=== PATIENT | female | born 1940 | race Caucasian/White ===

== ENCOUNTER 2023-10-09 21:44 | Inpatient (IN) | payer OTHER, SELFPAY ==
[2023-10-09 21:45] VITALS: BP 140/73; PULSE 54; RESP 17; TEMP 36.2; O2SAT 94; BMI 28.2
[2023-10-09 21:52] VITALS: BP 140/73; PULSE 51; RESP 21; TEMP 36.2; O2SAT 94
--- NOTE | 2023-10-09 22:08 | RAD_ITS ---
STUDY: X-RAY CHEST REASON FOR EXAM: Female, 83 years old. cough TECHNIQUE: Single AP portable view of the chest. COMPARISON: 06/18/2017 FINDINGS: The lungs are clear and expanded. Small left pleural effusion. There is moderate cardiac enlargement. Normal mediastinum and rima. There is prominence of the pulmonary hilar arteries and peripheral pulmonary arteries, consistent with congestive heart failure (CHF). Normal visualized aortic arch and descending thoracic aorta. Normal visualized thoracic spine. Normal visualized ribs, clavicles, and shoulders. There is no demonstrated abnormality of the visualized soft tissue structures of the upper abdomen. RAD/Chest 1 View (Portable) IMPRESSION: Mild congestive heart failure with a small left pleural effusion. Electronically Signed: Kirby Hylton MD at 22:54 EDT ,
[2023-10-09 22:21] LABS: Basophil# 0.03 X10^3/uL; Basophil% 0.4 % (0-1); Eosinophil# 0.07 X10^3/uL; Eosinophils% 0.9 % (0-5); Hematocrit 33.9 % (37-47); Hemoglobin 10.8 g/dL (12.0-15.0); Lymphocyte % 14.2 % (19-41); Mean Corp Hgb Conc 31.9 g/dL (32-36); Mean Corpuscular Hgb 29.3 pg (27.0-32.0); Mean Corpuscular Volume 91.9 fL (81-99); Mean Platelet Vol. 11.1 fl (6.2-12.0); Monocyte% 6.5 % (0-10); NRBC Flagged by Analyzer 0 % (0-5); Neutrophil # 6.03 X10^3/uL (2.7-7.7); Neutrophil % 77.7 % (47-70); Platelet Count 172 K/mm3 (150-450); RBC Distribution Width CV 14.9 % (11.6-14.6); RBC Distribution Width SD 50.4 fl (35.1-43.9); Red Blood Count 3.69 M/mm3 (4.2-5.4); White Blood Count 7.8 K/mm3 (4.4-11.0)
[2023-10-09 22:30] LABS: International Normalized Ratio 2.3; Prothrombin Time (Protime)PT. 24.8 SECONDS (11.7-14.9)
[2023-10-09 22:31] LABS: Partial Thromboplast Time 38.8 Seconds (24.1-36.2)
[2023-10-09] MEDS: Ondansetron 4 MG/2 ML Vial IV (22:33)
[2023-10-09 22:40] LABS: AST(SGOT) 14 U/L (15-37); Alanine Aminotransfer ALT/SGPT 11 U/L (13-56); Albumin, Serum 3.1 g/dL (3.2-5.0); Alkaline Phosphatase 63 U/L (45-117); Anion Gap 8 (5-15); BUN 30 mg/dL (7-18); BUN/Creat Ratio 25.6 RATIO (10-20); Bilirubin, Direct 0.59 mg/dL (0.00-0.30); Calcium,Total 8.8 mg/dL (8.5-10.1); Chloride 105 mmol/L (98-107); Creatinine, Serum 1.17 mg/dL (0.55-1.02); EST Glomerular Filtration Rate 47 mL/min (>60); Est Glom Filt Rate - Afr Amer 57 mL/min (>60); Estimated Creatinine Clearance 36.05 ml/min; Globulin 3.8 g/dL (2.2-4.2); Glucose 190 mg/dL (74-106); Magnesium 1.8 mg/dL (1.6-2.6); Potassium 3.4 mmol/L (3.5-5.1); Protein, Total 6.9 g/dL (6.4-8.2); Sodium Level 139 mmol/L (136-145)
[2023-10-09 22:43] VITALS: O2SAT 75; O2SAT 92
--- NOTE | 2023-10-09 22:46 | CT_ITS ---
STUDY: CT CHEST, ABDOMEN T PELVIS WITH CONTRAST REASON FOR EXAM: Female, 83 years old. abd pain RADIATION DOSAGE (If Supplied By Facility): CTDIvol = ( 22.24 ) mGy, DLP = ( 1535.21 ) mGycm TECHNIQUE: Transaxial imaging was performed following intravenous administration of IV 100mL Isovue-370. Individualized dose optimization techniques were used for this CT. COMPARISON: Chest x-ray earlier today FINDINGS: CHEST Enlargement of the left lobe of the thyroid gland extending superiorly and inferiorly. 1.5 cm noncalcified nodule in the apex of the right lung on image 15. Another 5 mm noncalcified nodule in the right upper lobe lungs on image 37. 1.5 cm ill-defined noncalcified nodule in the periphery of the right lower lobe lungs on image 83. Moderate bilateral pleural effusions with bibasilar atelectasis. There is moderate cardiac enlargement. Normal mediastinum. Normal hilar regions. Normal unenhanced pulmonary arteries. Normal aorta arch and descending thoracic aorta. Mild dextro scoliosis thoracic spine with degenerative disc disease. There is no demonstrated abnormality of the visualized upper abdomen. ABDOMEN The visualized lung bases are unremarkable. The visualized portions of the heart are within normal limits. Normal liver. There is non-visualization of the gallbladder, which may be secondary to either contraction or a prior cholecystectomy. Normal spleen. Normal pancreas. Normal bilateral adrenal glands. Normal right kidney. Normal left kidney. Normal visualized stomach. Normal small intestine. There are multiple colonic diverticula consistent with diverticulosis. There is non-visualization of the appendix. There is diffuse atherosclerotic calcification of the abdominal aorta, without a demonstrated aneurysm. Possible caval and iliac vein thrombosis with multiple collaterals in the perineum. Normal retroperitoneum. Normal abdominal wall. Normal osseous structures. PELVIS Normal urinary bladder. Normal visualized small intestine. Normal visualized colon. There is no pelvic fluid. There is no pelvic lymphadenopathy or mass lesion. Normal visualized pelvic arteries. Normal abdominal wall. Normal osseous structures. CT/CT Chest, Abd, Pel w/Contrast IMPRESSION: 1. Multiple ill-defined noncalcified nodules in the right lung. 2. Markedly enlargement of the left lobe of the thyroid gland worrisome for a dominant nodule. 3. Moderate bilateral pleural effusions with bibasilar atelectasis. 4. Cardiomegaly. 5. 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 Electronically Signed: Kirby Hylton MD at 0:01 EDT ,
[2023-10-09 22:47] LABS: BNP,B-Type NATRIURETIC PEPTIDE 1070.5 pg/mL (0-100)
[2023-10-09 22:52] VITALS: BP 118/54; PULSE 50; RESP 15; TEMP 36.4; O2SAT 95
[2023-10-09 23:00] VITALS: BP 122/60; PULSE 64; RESP 19; TEMP 36.4; O2SAT 97
[2023-10-09 23:51] LABS: Mucous, Urine 0 SEEN /hpf (<or=2+)
[2023-10-10] VITALS (11 sets, daily range): BP systolic 96–134; BP diastolic 45–83; PULSE 48–62; RESP 16–18; TEMP 36.1–36.9; O2SAT 85–97; BMI 27.8
[2023-10-10 00:15] LABS: Color, Urine Yellow (Yellow); Glucose, Dipstick NEGATIVE (Normal); Ketone-Dipstick Negative (Negative); Protein-Dipstick 30 mg/dl (Negative); Specific Gravity, Urine 1.015 (1.002-1.030); Urine Bilirubin Dipstick Negative (Negative); Urine Clarity Clear (Clear); Urine Urobilinogen 4 mg/dl (Normal)
[2023-10-10 00:16] LABS: Bacteria 3+ /hpf (None Seen); Leukocyte Esterase-Dipstick Negative /ul (Negative); Nitrite-Dipstick Negative (Negative); Occult Blood-Urine 10 /ul (Negative); Red Blood Cells-Urine 5-10 SEEN /hpf (0-5); Squamous Epithelial Cells - UA 5-10 SEEN /hpf (5-10); White Blood Cells 0-5 SEEN /hpf (0-5)
--- NOTE | 2023-10-10 00:57 | EX.ED.DYSGE1 ---
HPI History of Present Illness Chief Complaint: Nausea/Vomiting Informant: patient and family Narrative Narrative: Patient is 83-year-old female with past medical history of hypertension hyperlipidemia and chronic atrial fibrillation currently on Coumadin. Family states the patient is overall feeble but that in the last day or so has had increased cough and increased leg swelling and today had bouts of nausea and vomiting. They were concerned they were missing some type of infectious process or potential intestinal disorder and therefore brought her in for evaluation. Patient denies any known sick contacts and states she has been taking her medications as directed and denies any history or need for supplemental oxygen [facility] Medical History Atrial fibrillation Hypertension Stroke/cerebrovascular accident Home Medications carvedilol 6.25 mg tablet (Coreg) 6.25 mg PO BID 06/18/17 [History Last Taken Unknown] hydrochlorothiazide 50 mg tablet 25 mg PO DAILY 06/18/17 [History Last Taken Unknown] atorvastatin 40 mg tablet 40 mg PO QHS #30 tabs 06/20/17 [Rx Last Taken Unknown] warfarin 2 mg tablet 2 mg PO .COMPLEX 10/09/23 [History Last Taken Unknown] warfarin 2 mg tablet 4 mg PO .COMPLEX 10/09/23 [History Last Taken Unknown] hydrochlorothiazide 25 mg tablet 25 mg PO BID 10 days #20 tabs 10/10/23 [Rx Last Taken Unknown] ondansetron 4 mg disintegrating tablet 4 mg PO TID PRN nausea and vomiting #21 tabs 10/10/23 [Rx Last Taken Unknown] Allergy/AdvReac Type Severity Reaction Status Date / Time No Known Allergies Allergy Verified 06/18/17 21:08 Social History Smoking Status: Never smoker ROS ROS ED Constitutional Constitutional ED: Denies chills or fever(s) ENT ENT ED: Denies sore throat Cardiovascular Cardiovascular: Reports palpitations; Denies chest pain Respiratory/Chest Respiratory/Chest: Reports cough and dyspnea Gastrointestinal Gastrointestinal: Reports nausea and vomiting; Denies abdominal pain or diarrhea Genitourinary Genitourinary ED: Denies dysuria Musculoskeletal Musculoskeletal: Denies myalgias Integumentary Denies rash Neurologic Neurologic: Denies headache(s) Hematologic/Lymphatic Hematologic/Lymphatic: Reports easy bleeding and easy bruising EXAM Physical Exam Const Vital Signs: 10/09/23 21:45 10/09/23 21:52 10/09/23 22:43 Temperature 97.2 F L 97.2 F L Temperature Source Temporal Temporal Pulse Rate 54 L 51 L Respiratory Rate 17 21 H Blood Pressure 140/73 H 140/73 H Blood Pressure Mean 95 95 Pulse Ox 94 94 75 Oxygen Delivery Method Room Air Room Air Room Air Oxygen Flow Rate (L/min) 10/09/23 22:43 10/09/23 22:52 10/09/23 23:00 Temperature 97.6 F L 97.6 F L Temperature Source Temporal Oral Pulse Rate 50 L 64 Respiratory Rate 15 19 H Blood Pressure 118/54 L 122/60 H Blood Pressure Mean 75 80 Pulse Ox 92 95 97 Oxygen Delivery Method Nasal Cannula Nasal Cannula Nasal Cannula Oxygen Flow Rate (L/min) 4 4 4 10/10/23 00:00 10/10/23 01:09 10/10/23 02:14 Temperature 97.6 F L 97.6 F L 97.8 F Temperature Source Oral Pulse Rate 50 L 51 L 50 L Respiratory Rate 17 17 16 Blood Pressure 110/47 L 116/49 L 134/63 H Blood Pressure Mean 68 71 86 Pulse Ox 93 85 96 Oxygen Delivery Method Nasal Cannula Oxygen Flow Rate (L/min) 3 10/10/23 02:00 10/10/23 03:00 Temperature 98 F 98 F Temperature Source Oral Oral Pulse Rate 61 51 L Respiratory Rate 16 16 Blood Pressure 134/83 H 105/65 Blood Pressure Mean 100 78 Pulse Ox 93 95 Oxygen Delivery Method Nasal Cannula Nasal Cannula Oxygen Flow Rate (L/min) 3 3 Positive well nourished and well developed General Appearance ED: well developed and pallor HEENT Reports dry mucous membranes HEENT Narrative: No tongue or lip swelling no oral lesions no airway edema or compromise Mouth ED: Yes dry mucous membranes Mouth: dry mucous membranes Eyes PERRL and EOMs intact bilaterally General Eye ED: Yes pale conjunctiva; Negative for scleral icterus Neck supple Neck Narrative: Trace JVD noted bilaterally Resp normal respiratory effort Resp Narrative: Breath sounds are diminished throughout with faint crackles noted in the bilateral bases but overall no nasal flaring retractions tachypnea or accessory muscle use Cardio Rate: other Other Details: Heart has an irregularly irregular rhythm with bradycardic rate consistent with history of chronic atrial fibrillation GI non-tender and non-distended GI Narrative: Abdomen is soft nontender nondistended with hyperactive bowel sounds No voluntary guarding or rigidity or pulsatile mass No fluid wave noted Auscultation: hyperactive bowel sounds Palpation: soft Extremity Extremity Narrative: +3-4 pitting edema to the bilateral lower extremities that is equal and symmetric Negative Homans' sign bilaterally Neuro oriented x3 and CN's II-XII intact bilaterally Sensorium / Orientation: alert Psych Psych Narrative: Patient has a flat affect Skin no rashes or lesions noted and No no wounds General Skin Exam: pallor MDM MDM MDM Narrative Medical decision making narrative: Patient arrived to the ER and rate controlled atrial fibrillation which is chronic for her. She was not in respiratory distress but her pulse ox was on the lower side of 90 to 92% on room air. With her report of bouts of nausea and vomiting there is concern for viral stomach infection such as [place] virus or rotavirus. There is also potential for aspiration based on the recurrent bouts of vomiting and as she also has increased leg swelling there is concern for CHF exacerbation. Patient blood work with a CT scan were obtained. Labs revealed an elevated proBNP but otherwise no clinically significant findings. Chest x-ray showed a pleural effusion but CT scan showed bilateral pleural effusions that were moderate in size. There is no obvious intestinal infection or obstructive process noted. The patient dropped her pulse ox in the low 90s on room air down to 75% and despite being adjusted and being made to move the pulse ox would not elevate above the low to mid 80s and therefore she was placed on oxygen. Therefore at this time as her proBNP is elevated she has moderate bilateral pleural effusions and is now hypoxic I do feel she would warrant IV diuresis as well as inpatient therapy secondary to the need for oxygen. This was discussed with patient and family and they do agree to this treatment plan. Patient was given IV Lasix and medicine was contacted and they do agree to accept the patient for further care at this time History & Record Review Discussion w/independent historian: Patient and Family Lab Data Attestation: I reviewed the patient's lab results. Labs: Laboratory Results - last 24 hr 10/09/23 10/09/23 22:05 23:40 WBC 7.8 RBC 3.69 L Hgb 10.8 L Hct 33.9 L MCV 91.9 MCH 29.3 MCHC 31.9 L RDW Std Deviation 50.4 H RDW Coeff of Rosa Maria 14.9 H Plt Count 172 MPV 11.1 Immature Gran % (Auto) 0.300 Neut % (Auto) 77.7 H Lymph % (Auto) 14.2 L [place] % (Auto) 6.5 Eos % (Auto) 0.9 Baso % (Auto) 0.4 Absolute Neuts (auto) 6.0 Absolute Lymphs (auto) 1.10 Nucleated RBC % 0 PT 24.8 H INR 2.3 APTT 38.8 H Sodium 139 Potassium 3.4 L Chloride 105 Carbon Dioxide 26.0 Anion Gap 8 BUN 30 H Creatinine 1.17 H Estim Creat Clear Calc 36.05 Est GFR (MDRD) Af Amer 57 L Est GFR (MDRD) Non-Af 47 L BUN/Creatinine Ratio 25.6 H Glucose 190 H Calcium 8.8 Magnesium 1.8 Total Bilirubin 1.40 H Direct Bilirubin 0.59 H AST 14 L ALT 11 L Alkaline Phosphatase 63 B-Natriuretic Peptide 1070.5 H Total Protein 6.9 Albumin 3.1 L Globulin 3.8 Urine Color Yellow Urine Clarity Clear Urine pH 5.0 Ur Specific [place] 1.015 Urine Protein 30 H Urine Glucose (UA) NEGATIVE Urine Ketones Negative Urine Occult Blood 10 H Urine Nitrite Negative Urine Bilirubin Negative Urine Urobilinogen 4 H Ur Leukocyte Esterase Negative Urine RBC 5-10 SEEN Urine WBC 0-5 SEEN Ur Squamous Epith Cells 5-10 SEEN Urine Bacteria 3+ Urine Mucus 0 SEEN Radiography Diagnostic Testing: Clinical Impression(s) from Imaging Studies Chest X-Ray 10/09/23 22:08 IMPRESSION: Mild congestive heart failure with a small left pleural effusion. Electronically Signed: Kirby Hylton MD at 22:54 EDT , Chest/Abdomen/Pelvis CT 10/09/23 22:46 IMPRESSION: 1. Multiple ill-defined noncalcified nodules in the right lung. 2. Markedly enlargement of the left lobe of the thyroid gland worrisome for a dominant nodule. 3. Moderate bilateral pleural effusions with bibasilar atelectasis. 4. Cardiomegaly. 5. 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 Electronically Signed: Kirby Hylton MD at 0:01 EDT , 1 view chest x-ray as interpreted by the emergency medicine physician reveals cardiomegaly with a small left-sided pleural effusion Discharge Plan Dx/Rx/DC Orders Clinical Impression: Congestive heart failure, Pleural effusion, Viral syndrome, Current use of predatory animal exterminator anticoagulation, HLD (hyperlipidemia), Chronic atrial fibrillation, HTN (hypertension) Disposition Disposition: Acute Care Hospital [facility] Discharge Date/Time: 10/10/23 04:28
--- NOTE | 2023-10-10 01:11 | ED.RN ---
Dr. An aware of pt low O2 while sleeping. Family requests to take pt home.
[2023-10-10] MEDS: Furosemide 40 MG/4 ML Vial IV ×3 (01:14→17:47)
--- NOTE | 2023-10-10 01:37 | ED.RN ---
Pt 85% on RA while sitting on edge of the bed before discharge. Walked pt, went from 85-80%. Discussed pt admission with pt and family. RN explained that pt needs supplemental oxygen and diuretics. Discussed pt condition with Dr. An. Juve talking with family with this RN in the room. Family re-educated on pt admission benefits. Family discussing plan of care together. Family then reusing to speak with RN about pt condition and will only speak to doctor. Dr. An is aware. Pt resting on 3L at 97%.
--- NOTE | 2023-10-10 02:01 | PCM.HP.STD ---
[facility] - General General Date of Admission: 10/10/23 Date of Service: 10/10/23 Chief Complaint: SOB, Fatigue, Nausea and Vomiting. HPI Narrative MARYAN STANFORD, is a 83 F with a past medical history of essential hypertension, hyperlipidemia, overweight; with BMI of 28.2 this admission, chronic atrial fibrillation; on Coumadin (with INR of 2.3 present on admission), history of CVA (05/2017), history of CHF and osteoarthritis who presents to [facility] ER complaining of shortness of breath, fatigue, nausea and vomiting. Ms. Stanford reports her symptoms began approximately 2 to 3 days prior to admission with a gradual onset of dyspnea on exertion that progressed to shortness of breath at rest. She also admits to nausea with bilious emesis but she denies blood in her emesis or stools. They deny any known history of thyroid nodules or lung nodules but she does admit to a chronic cough that have been worse over the winter but has since somewhat improved. She admits her symptoms are similar to her previous bouts of CHF. In the ER she was noted to have a highly elevated BNP of 1,070.5 pg/mL present on admission with chest x-ray revealing mild congestive heart failure with small pleural effusion and CT scan of the chest revealing multiple ill-defined nodules in the right lung with a marked enlargement of the left lobe of the thyroid gland worrisome for a dominant nodule along with moderate bilateral pleural effusions with bibasilar atelectasis, cardiomegaly and possible caval and iliac vein thrombosis (likely chronic with multiple varices in the peritoneum) compounded by clinical evidence of respiratory insufficiency and laboratory evidence of hypokalemia of 3.4 mmol/L present on admission and she was then admitted to the PCU for ongoing care for stay that is expected to be greater than 48 hours. [facility] Medical History Atrial fibrillation Hypertension Stroke/cerebrovascular accident Home Medications carvedilol 6.25 mg tablet (Coreg) 6.25 mg PO BID 06/18/17 [History Last Taken Unknown] hydrochlorothiazide 50 mg tablet 25 mg PO DAILY 06/18/17 [History Last Taken Unknown] atorvastatin 40 mg tablet 40 mg PO QHS #30 tabs 06/20/17 [Rx Last Taken Unknown] warfarin 2 mg tablet 2 mg PO .COMPLEX 10/09/23 [History Last Taken Unknown] warfarin 2 mg tablet 4 mg PO .COMPLEX 10/09/23 [History Last Taken Unknown] hydrochlorothiazide 25 mg tablet 25 mg PO BID 10 days #20 tabs 10/10/23 [Rx Last Taken Unknown] ondansetron 4 mg disintegrating tablet 4 mg PO TID PRN nausea and vomiting #21 tabs 10/10/23 [Rx Last Taken Unknown] Allergy/AdvReac Type Severity Reaction Status Date / Time No Known Allergies Allergy Verified 06/18/17 21:08 Social History Smoking Status: Never smoker ROS ROS Narrative Review of systems: General: Patient denies fevers or chills. HENT: Denies headache, denies stuffy nose, denies sore throat EYES: Denies changes in vision or discharge from eyes. Resp: Patient admits to shortness of breath but denies cough. Cardiac: Patient admits to dyspnea on exertion that progressed to shortness of breath at rest but she denies chest pain, palpitations or heart racing. GI: Patient admits to nausea and bilious emesis but she denies abdominal pain, denies changes in bowel. : Denies changes in urination Extremity: Patient admits to lower extremity edema. Musculoskeletal: Patient denies arthralgias or myalgias. Neuro: Patient denies associated headache, paresthesias or focal neurologic deficits. Heme: Denies any bleeding or bruising Skin: Denies rashes Psychiatric: No complaints voiced related to uncontrolled depression or anxiety. Endocrine: No polyuria, polydipsia or polyphagia. The rest of the 14 point ROS was negative except for positives in HPI. Vital Signs Vital Signs Vital Signs: 10/09/23 21:45 10/09/23 21:52 10/09/23 22:43 Temperature 97.2 F L 97.2 F L Temperature Source Temporal Temporal Pulse Rate 54 L 51 L Respiratory Rate 17 21 H Blood Pressure 140/73 H 140/73 H Blood Pressure Mean 95 95 Pulse Ox 94 94 75 Oxygen Delivery Method Room Air Room Air Room Air Oxygen Flow Rate (L/min) 10/09/23 22:43 10/09/23 22:52 10/09/23 23:00 Temperature 97.6 F L 97.6 F L Temperature Source Temporal Oral Pulse Rate 50 L 64 Respiratory Rate 15 19 H Blood Pressure 118/54 L 122/60 H Blood Pressure Mean 75 80 Pulse Ox 92 95 97 Oxygen Delivery Method Nasal Cannula Nasal Cannula Nasal Cannula Oxygen Flow Rate (L/min) 4 4 4 10/10/23 00:00 10/10/23 01:09 Temperature 97.6 F L 97.6 F L Temperature Source Oral Pulse Rate 50 L 51 L Respiratory Rate 17 17 Blood Pressure 110/47 L 116/49 L Blood Pressure Mean 68 71 Pulse Ox 93 85 Oxygen Delivery Method Nasal Cannula Oxygen Flow Rate (L/min) 3 Weight Weight: 169 lb 8.568 oz Body Mass Index (BMI) 28.2 Physical Exam Const alert, oriented x3, no apparent distress and average body habitus General Appearance: cooperative HEENT normocephalic, head/scalp atraumatic, hearing grossly normal bilaterally and moist oral mucous membranes Eyes PERRL and EOMs intact bilaterally Neck no lymphadenopathy and supple Resp Resp Narrative: Diminished breath sounds throughout with bibasilar rales. Auscultation: rales Cardio regular rate and regular rhythm GI normal to inspection, nondistended, normoactive bowel sounds, soft to palpation, non-tender and non-distended Neuro oriented x3, CN's II-XII intact bilaterally, moves all extremities and no focal motor deficits Sensorium / Orientation: awake, alert, oriented to person, oriented to place and oriented to time Speech: speech normal Psych affect normal Results Medical Records Data Attestation: I reviewed the patient's medical records Lab / Micro Data Attestation: I reviewed the patient's lab results. 10/09/23 22:05 10/09/23 22:05 Labs: Laboratory Results - last 24 hr 10/09/23 22:05: WBC 7.8, RBC 3.69 L, Hgb 10.8 L, Hct 33.9 L, MCV 91.9, MCH 29.3, MCHC 31.9 L, RDW Std Deviation 50.4 H, RDW Coeff of Rosa [place] 14.9 H, Plt Count 172, MPV 11.1, Immature Gran % (Auto) 0.300, Neut % (Auto) 77.7 H, Lymph % (Auto) 14.2 L, [place] % (Auto) 6.5, Eos % (Auto) 0.9, Baso % (Auto) 0.4, Absolute Neuts (auto) 6.0, Absolute Lymphs (auto) 1.10, Nucleated RBC % 0, PT 24.8 H, INR 2.3, APTT 38.8 H, Sodium 139, Potassium 3.4 L, Chloride 105, Carbon Dioxide 26.0, Anion Gap 8, BUN 30 H, Creatinine 1.17 H, Estim Creat Clear Calc 36.05, Est GFR (MDRD) Af Amer 57 L, Est GFR (MDRD) Non-Af 47 L, BUN/Creatinine Ratio 25.6 H, Glucose 190 H, Calcium 8.8, Magnesium 1.8, Total Bilirubin 1.40 H, Direct Bilirubin 0.59 H, AST 14 L, ALT 11 L, Alkaline Phosphatase 63, B-Natriuretic Peptide 1070.5 H, Total Protein 6.9, Albumin 3.1 L, Globulin 3.8 10/09/23 23:40: Urine Color Yellow, Urine Clarity Clear, Urine pH 5.0, Ur Specific [place] 1.015, Urine Protein 30 H, Urine Glucose (UA) NEGATIVE, Urine Ketones Negative, Urine Occult Blood 10 H, Urine Nitrite Negative, Urine Bilirubin Negative, Urine Urobilinogen 4 H, Ur Leukocyte Esterase Negative, Urine RBC 5-10 SEEN, Urine WBC 0-5 SEEN, Ur Squamous Epith Cells 5-10 SEEN, Urine Bacteria 3+, Urine Mucus 0 SEEN Micro: Microbiology 10/09/23 22:20 Mucosa - Nose SARS-CoV-2, Influenza & RSV (PCR) - Final Imaging Radiology Impression Chest X-Ray 10/09/23 22:08 IMPRESSION: Mild congestive heart failure with a small left pleural effusion. Electronically Signed: Kirby Hylton MD at 22:54 EDT , Chest/Abdomen/Pelvis CT 10/09/23 22:46 IMPRESSION: 1. Multiple ill-defined noncalcified nodules in the right lung. 2. Markedly enlargement of the left lobe of the thyroid gland worrisome for a dominant nodule. 3. Moderate bilateral pleural effusions with bibasilar atelectasis. 4. Cardiomegaly. 5. 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 Electronically Signed: Kirby Hylton MD at 0:01 EDT , Assessment & Plan Assessment/Plan (1) Congestive heart failure: QUALIFIERS: Heart failure type: unspecified Heart failure chronicity: acute on chronic Qualified Code(s): I50.9 - Heart failure, unspecified (2) Respiratory insufficiency: (3) Pleural effusion: (4) Lung nodule, multiple: (5) Thyroid nodule: (6) Hypokalemia: (7) Chronic atrial fibrillation: (8) History of stroke: PLAN: Plan 1. Acute exacerbation of chronic CHF with cardiomegaly and moderate bilateral pleural effusions evident on chest imaging this admission confirmed by elevated BNP of 1070.5 pg/mL- Admit to PCU. Continue IV Lasix plus add supplemental potassium and magnesium. Place Patel and follow strict I's and O's. Check echocardiogram to evaluate LVEF. Finally, we will consult safety fire boss on-call to see this patient on rounds in the a.m. for further recommendations without appreciated in advance. 2. Respiratory insufficiency attributable to #1 - Wean supplemental oxygen as tolerated. 3. Intractable nausea and vomiting due to suspected viral gastroenteritis complicating #1 & #2 - Give IV Zofran as needed. Otherwise, continue supportive care and monitor for improvement. 4. Multiple ill-defined nodules in the right lung with a marked enlargement of the left lobe of the thyroid gland worrisome for a dominant nodule compounding #1 - #3 - Check TSH along with thyroid ultrasound. Finally, we will consult pulmonology to see this patient on rounds in the a.m. for further recommendations without appreciated in advance. 5. Hypokalemia of 3.4 mmol/L present on admission - Give supplemental KCl and then recheck BMP in the a.m. to ensure correction. 6. Chronic atrial fibrillation; on Coumadin (with INR of 2.3 present on admission) - Stable. Continue Coumadin as previous and check INR daily to maintain therapeutic range of 2-3. 7. Essential hypertension - Resume home regimen plus give IV hydralazine as needed for systolic blood pressure greater than 160 mmHg. 8. Hyperlipidemia - Continue statin. 9. Overweight; with BMI of 28.2 this admission - Weight loss will be recommended. 10. History of CVA (05/2017) - Noted. 11. Osteoarthritis - Give Tylenol as needed. 12. DVT prophylaxis - Patient is already on therapeutic Coumadin for #6 which will be continued with daily INR to be checked. Total time: Approximately 85 minutes. Charges/Coding Visit Charges Inpatient E&M: 63852 Init Hosp L3
--- NOTE | 2023-10-10 04:21 | US_ITS ---
STUDY: THYROID ULTRASOUND REASON FOR EXAM: Female, 83 years old. Dominant thyroid nodule suspected on CT TECHNIQUE: Ultrasound evaluation of the thyroid was performed with real-time and static solano-scale imaging. COMPARISON: Comparison is made with prior CT scan of the chest dated October 09, 2023. FINDINGS: RIGHT LOBE: The right lobe of the thyroid gland measures 3.3 cm x 1.1 cm x 1.3 cm. There is a heterogeneous echotexture. Multiple subcentimeter solid hypoechoic nodules scattered throughout the right lobe. The largest measures 7 mm x 6 mm x 4 mm. This is in the upper pole. LEFT LOBE: The left lobe of the thyroid gland is enlarged and measures 6 cm x 4.5 cm x 4.5 cm. There is a heterogeneous echotexture. There is a dominant 4.9 cm x 4.9 cm x 5.2 cm heterogeneous solid nodule with internal nodular vascularity corresponding to the CT findings. Biopsy recommended. ISTHMUS: The isthmus measures 1.5 mm. The regional lymph nodes are normal. US/Thyroid IMPRESSION: Heterogeneous appearance of both lobes of the thyroid. Enlarged left lobe of the thyroid with a dominant solid mass measuring 4.9 sono by 4.9+ by 5.2 cm. Intranodular vascularity is seen. Biopsy recommended. Electronically Signed: Joaquim Nieves MD at 11:22 EDT ,
--- NOTE | 2023-10-10 04:21 | ECHOD_ITS ---
Reason For Study: CONGESTIVE HEART FAILURE Procedure This was a 2D Doppler, Color Flow transthoracic echocardiogram. Exam performed portable in patient room. Left Ventricle Normal LV size. Left ventricular systolic function is normal. The estimated ejection fraction is 55 %. No regional wall motion abnormalities noted. Right Ventricle Normal RV size. Normal systolic function. Atria The left atrium is moderately enlarged. The right atrium is moderately enlarged. Mitral Valve Bileaflet diffuse mitral valve thickening. Mild (1+) eccentric mitral valve insufficiency. Tricuspid Valve Normal tricuspid valve. Moderate (2+) tricuspid valve insufficiency. Pulmonary artery systolic pressure is 69 mmHg. Moderate pulmonary hypertension. Aortic Valve Trisinus/trileaflet aortic valve. Pulmonic Valve Normal pulmonic valve. Great Vessels Normal aortic root. The pulmonary artery is normal size. Normal inferior vena cava. Pericardium/Pleural No pericardial effusion. MMode/2D Measurements & Calculations LVIDd: 4.8 cm IVSd: 1.1 cm LVOT diam: 1.9 cm LVIDs: 3.3 cm LVPWd: 0.96 cm LVOT area: 2.7 cm2 RVDd: 4.3 cm FS: 30.3 % Ao root diam: 2.8 cm LAV(MOD-bp): 110.2 ml LVAd ap4: 18.6 cm2 LAV(MOD-bp) Indexed: 61.1 ml/m2 LVLd ap4: 6.5 cm LAV(MOD-sp2): 151.1 ml EDV(MOD-sp4): 45.4 ml LAV(MOD-sp4): 78.4 ml EDV(sp4-el): 45.2 ml LVAs ap4: 11.3 cm2 LVLs ap4: 5.7 cm ESV(MOD-sp4): 20.0 ml ESV(sp4-el): 19.0 ml EF(MOD-sp4): 55.8 % EF(sp4-el): 57.9 % LVAd ap2: 17.8 cm2 SV(MOD-sp4): 25.3 ml SV(MOD-sp2): 25.2 ml LVLd ap2: 6.5 cm EDV(MOD-sp2): 40.2 ml EDV(sp2-el): 41.6 ml LVAs ap2: 9.5 cm2 LVLs ap2: 5.1 cm ESV(MOD-sp2): 15.0 ml ESV(sp2-el): 15.0 ml EF(MOD-sp2): 62.6 % SV(sp4-el): 26.1 ml LA dimension(2D): 4.8 cm LA A4 area: 26.0 cm2 RA A4 area: 26.2 cm2 TAPSE: 1.6 cm Time Measurements MV dec time: 0.17 sec Doppler Measurements & Calculations MV E max donavon: 94.9 cm/sec Lat Peak E' Donavon: 7.2 cm/sec Med Peak E' Donavon: 5.8 cm/sec E/E' lat: 13.2 E/E' med: 16.4 Ao V2 max: 133.5 cm/sec LV V1 max: 100.8 cm/sec SV(LVOT): 68.8 ml Ao max P.1 mmHg LV V1 max P.1 mmHg Ao V2 mean: 95.7 cm/sec LV V1 mean P.5 mmHg Ao mean P.1 mmHg LV V1 mean: 75.6 cm/sec Ao V2 VTI: 32.1 cm LV V1 VTI: 25.1 cm AV (velocity ratio): 0.78 JESUSITA(I,D): 2.1 cm2 JESUSITA(V,D): 2.1 cm2 PA V2 max: 105.6 cm/sec TR max donavon: 384.6 cm/sec PA max PG (full): 1.0 mmHg TR max P.2 mmHg ECHO/Echo Complete Interpretation Summary Pulmonary artery systolic pressure is 69 mmHg. Moderate pulmonary hypertension. Normal LV size. Left ventricular systolic function is normal. The estimated ejection fraction is 55 %. Biatrial enlargement Ordering Physician: Frank Baez Referring Physician: PAIGE GALLOWAY Performed By: Verenice Perez RDCS
[2023-10-10 05:53] LABS: Absolute Lymphocyte Count 1.15 X10^3/uL (0.83-4.51); Basophil# 0.03 X10^3/uL; Basophil% 0.4 % (0-1); Eosinophil# 0.01 X10^3/uL; Eosinophils% 0.1 % (0-5); Hematocrit 34.8 % (37-47); Hemoglobin 10.8 g/dL (12.0-15.0); Lymphocyte # 1.15 X10^3/ul (0.83-4.51); Lymphocyte % 14.9 % (19-41); Mean Corpuscular Hgb 28.8 pg (27.0-32.0); Mean Corpuscular Volume 92.8 fL (81-99); Mean Platelet Vol. 11.6 fl (6.2-12.0); Monocyte# 0.56 X10^3/uL; Monocyte% 7.2 % (0-10); NRBC Flagged by Analyzer 0 % (0-5); Neutrophil # 5.96 X10^3/uL (2.7-7.7); Platelet Count 160 K/mm3 (150-450); RBC Distribution Width SD 51.4 fl (35.1-43.9); Red Blood Count 3.75 M/mm3 (4.2-5.4); White Blood Count 7.7 K/mm3 (4.4-11.0)
--- NOTE | 2023-10-10 05:55 | RAD_ITS ---
STUDY: X-RAY CHEST REASON FOR EXAM: Female, 83 years old. AE CHF TECHNIQUE: Single AP portable view of the chest. COMPARISON: Comparison is made with prior study dated October 09, 2023. FINDINGS: EKG electrodes are seen. Residual pleural parenchymal changes at the left lung base. The CHF has improved. Mild residual changes persist. There is mild cardiac enlargement. Normal mediastinum and rima. Normal visualized pulmonary arteries. There is atherosclerotic calcification of the aortic arch with tortuosity. There are diffuse degenerative changes of the visualized thoracic spine. There is degenerative osteoarthritis of the bilateral shoulders. There is no demonstrated abnormality of the visualized soft tissue structures of the upper abdomen. RAD/Chest 1 View (Portable) IMPRESSION: There has been improvement of the CHF with residual pleural parenchymal changes seen at the left lung base. Electronically Signed: Joaquim Nieves MD at 15:42 EDT ,
[2023-10-10 06:15] LABS: International Normalized Ratio 2.2; Prothrombin Time (Protime)PT. 24.2 SECONDS (11.7-14.9)
[2023-10-10 06:26] LABS: Phosphorus 3.7 mg/dL (2.5-4.9)
[2023-10-10 06:35] LABS: ALB/GLOB Ratio 0.8 RATIO (0.9-2.4); AST(SGOT) 12 U/L (15-37); Alanine Aminotransfer ALT/SGPT 10 U/L (13-56); Alkaline Phosphatase 62 U/L (45-117); Anion Gap 6 (5-15); BUN 30 mg/dL (7-18); Calcium,Total 8.6 mg/dL (8.5-10.1); Chloride 105 mmol/L (98-107); Cholesterol 85 mg/dL (200); Creatinine, Serum 1.07 mg/dL (0.55-1.02); EST Glomerular Filtration Rate 52 mL/min (>60); Est Glom Filt Rate - Afr Amer 63 mL/min (>60); Estimated Creatinine Clearance 37.73 ml/min; Globulin 3.6 g/dL (2.2-4.2); Glucose 141 mg/dL (74-106); High Density Lipoprotein 33 mg/dL; Magnesium 1.8 mg/dL (1.6-2.6); Potassium 3.2 mmol/L (3.5-5.1); Protein, Total 6.6 g/dL (6.4-8.2); Sodium Level 139 mmol/L (136-145); Thyroid Stim Hormone (TSH) 1.52 uIU/mL (0.358-3.74); Triglycerides 47 mg/dL; Very Low Density Lipoprotein 9 mg/dL (5-40)
--- NOTE | 2023-10-10 07:56 | CON.PCM.CA_ITS ---
Assessment & Plan Assessment/Plan (1) Chronic atrial fibrillation: PLAN: She presents with chronic persistent atrial fibrillation with a controlled ventricular response rate. The plan is for her to continue on the current anticoagulation maintaining an INR of 2-3 as well as remain on the beta-stephen. Echocardiogram performed demonstrated preserved ejection fraction with biatrial enlargement. * (2) HTN (hypertension): QUALIFIERS: Hypertension type: essential hypertension Qualified Code(s): I10 - Essential (primary) hypertension PLAN: Her blood pressure appears to be under good control at this time. I would not recommend any major changes. (3) Congestive heart failure: QUALIFIERS: Heart failure chronicity: acute on chronic Heart failure type: unspecified Qualified Code(s): I50.9 - Heart failure, unspecified PLAN: She appears to have heart failure with reduced ejection fraction. This is likely on the basis of hypertensive heart disease and atrial fibrillation. I would recommend we optimize her therapy with guideline directed therapy. She will continue on the beta-stephen, CAROLIN inhibitor. I suspect Entresto will be too expensive to afford and the same with an SGLT2. I will however discuss this further with her. Further recommendations will be made after the results of the echocardiogram. HPI Consult Data Date of Consult: 10/10/23 HPI Narrative HPI Narrative: MARYAN RAE, is a 83 F who presents with a past medical history of hypertension, hyperlipidemia, obesity, chronic persistent atrial fibrillation on ant icoagulation with a previous history of cerebrovascular accident. He also has a history of previous congestive heart failure and osteoarthritis. She presented to the hospital complaining of shortness of breath fatigue nausea and vomiting. This had been going on for approximately 2 to 3 days prior to admission. In the emergency room she was evaluated she was noted to be in atrial fibrillation with a controlled ventricular response rate natruretic peptide was elevated and chest x-ray revealed small pleural effusion with a CT scan demonstrating mild congestive heart failure. In addition there was a suggestion of possible cava and Ilac vein thrombosis noted on the CT scan. Cardiology was consulted to evaluate the patient due to the elevated natruretic peptide level. This morning she is free of any symptomatology. [facility] Medical History Atrial fibrillation Hypertension Stroke/cerebrovascular accident Home Medications carvedilol 6.25 mg tablet (Coreg) 6.25 mg PO BID 06/18/17 [History Last Taken Unknown] hydrochlorothiazide 50 mg tablet 25 mg PO DAILY 06/18/17 [History Last Taken Unknown] atorvastatin 40 mg tablet 40 mg PO QHS #30 tabs 06/20/17 [Rx Last Taken Unknown] warfarin 2 mg tablet 2 mg PO .COMPLEX 10/09/23 [History Last Taken Unknown] warfarin 2 mg tablet 4 mg PO .COMPLEX 10/09/23 [History Last Taken Unknown] hydrochlorothiazide 25 mg tablet 25 mg PO BID 10 days #20 tabs 10/10/23 [Rx Last Taken Unknown] ondansetron 4 mg disintegrating tablet 4 mg PO TID PRN nausea and vomiting #21 tabs 10/10/23 [Rx Last Taken Unknown] Allergy/AdvReac Type Severity Reaction Status Date / Time No Known Allergies Allergy Verified 06/18/17 21:08 Social History Smoking Status: Never smoker ROS Constitutional Constitutional: Denies fever(s) or weight loss Eyes Eyes: Reports systems reviewed and no addt'l complaints, except as documented ENT HEENT: Reports systems reviewed and no addt'l complaints, except as documented Cardiovascular Cardiovascular: Denies chest pain at rest, chest pain with activity, dyspnea at rest, dyspnea on exertion, edema, palpitations or paroxysmal nocturnal dyspnea Respiratory/Chest Respiratory/Chest: Reports shortness of breath at rest; Denies dyspnea on e xertion, productive cough or shortness of breath with exertion Gastrointestinal Gastrointestinal: Reports nausea and vomiting; Denies change in bowel habits or weight changes Genitourinary Genitourinary: Denies difficulty urinating Musculoskeletal Musculoskeletal: Denies joint stiffness or muscle weakness Integumentary Integumentary: Denies lesions Neurologic Neurologic: Denies dizziness or syncope Psychiatric Psychiatric: Denies anxiety Endocrine Endocrinology: Denies excessive sweating or fatigue Hematologic/Lymphatic Hematologic/Lymphatic: Denies anemia Allergic/Immunologic Allergic/Immunologic: Denies seasonal rhinorrhea Physical Exam Const alert, oriented x3 and no apparent distress General Appearance: cooperative HEENT hearing grossly normal bilaterally Head and Scalp: atraumatic Eyes EOMs intact bilaterally Neck General: normal visual inspection Chest inspection of chest normal and palpation of chest normal Resp normal respiratory effort Auscultation: clear to auscultation bilaterally Cardio regular rate, regular rhythm, S1 normal heart sound and S2 normal heart sound Jugular Venous Distention: JVD GI normal to inspection, nondistended, normoactive bowel sounds Extremity normal capillary refill and no pedal edema Peripheral Pulses: Yes pulses 2+ throughout and femoral pulses present Skin no rashes or lesions noted Neuro oriented x3 and CN's II-XII intact bilaterally Psych Appearance: grossly normal and appropriate Risk Stratification Risk Stratification Applicable: No Objective Data Vital Signs: Vital Signs Temp Pulse Resp BP Pulse Ox O2 Del Method O2 Flow Rate 97 F L 58 L 18 130/60 H 95 Nasal Cannula 2 10/10/23 06:30 10/10/23 06:30 10/10/23 06:30 10/10/23 06:30 10/10/23 06:30 10/10/23 06:30 10/10/23 06:30 Oxygen Flow Rate (L/min) 2 Oxygen Delivery Method Nasal Cannula Weight: 161 lb 13.109 oz Body Mass Index (BMI) 27.8 Lab / Micro Data 10/10/23 05:20 10/10/23 05:20 Labs: Laboratory Results - last 24 hr 10/09/23 22:05: WBC 7.8, RBC 3.69 L, Hgb 10.8 L, Hct 33.9 L, MCV 91.9, MCH 29.3, MCHC 31.9 L, RDW Std Deviation 50.4 H, RDW Coeff of Rosa Maria 14.9 H, Plt Count 172, MPV 11.1, Immature Gran % (Auto) 0.300, Neut % (Auto) 77.7 H, Lymph % (Auto) 14.2 L, Schuyler % (Auto) 6.5, Eos % (Auto) 0.9, Baso % (Auto) 0.4, Absolute Neuts (auto) 6.0, Absolute Lymphs (auto) 1.10, Nucleated RBC % 0, PT 24.8 H, INR 2.3, APTT 38.8 H, Sodium 139, Potassium 3.4 L, Chloride 105, Carbon Dioxide 26.0, Anion Gap 8, BUN 30 H, Creatinine 1.17 H, Estim Creat Clear Calc 36.05, Est GFR (MDRD) Af Amer 57 L, Est GFR (MDRD) Non-Af 47 L, BUN/Creatinine Ratio 25.6 H, Glucose 190 H, Calcium 8.8, Magnesium 1.8, Total Bilirubin 1.40 H, Direct Bilirubin 0.59 H, AST 14 L, ALT 11 L, Alkaline Phosphatase 63, B-Natriuretic Peptide 1070.5 H, Total Protein 6.9, Albumin 3.1 L, Globulin 3.8 10/09/23 23:40: Urine Color Yellow, Urine Clarity Clear, Urine pH 5.0, Ur Specific [place] 1.015, Urine Protein 30 H, Urine Glucose (UA) NEGATIVE, Urine Ketones Negative, Urine Occult Blood 10 H, Urine Nitrite Negative, Urine Bilirubin Negative, Urine Urobilinogen 4 H, Ur Leukocyte Esterase Negative, Urine RBC 5-10 SEEN, Urine WBC 0-5 SEEN, Ur Squamous Epith Cells 5-10 SEEN, Urine Bacteria 3+, Urine Mucus 0 SEEN 10/10/23 05:20: WBC 7.7, RBC 3.75 L, Hgb 10.8 L, Hct 34.8 L, MCV 92.8, MCH 28.8, MCHC 31.0 L, RDW Std Deviation 51.4 H, RDW Coeff of Rosa Maria 15.0 H, Plt Count 160, MPV 11.6, Immature Gran % (Auto) 0.400, Neut % (Auto) 77.0 H, Lymph % (Auto) 14.9 L, [place]uyler % (Auto) 7.2, Eos % (Auto) 0.1, Baso % (Auto) 0.4, Absolute Neuts (auto) 6.0, Absolute Lymphs (auto) 1.15, Nucleated RBC % 0, PT 24.2 H, INR 2.2, Sodium 139, Potassium 3.2 L, Chloride 105, Carbon Dioxide 28.0, Anion Gap 6, BUN 30 H, Creatinine 1.07 H, Estim Creat Clear Calc 37.73, Est GFR (MDRD) Af Amer 63, Est GFR (MDRD) Non-Af 52 L, BUN/Creatinine Ratio 28.0 H, Glucose 141 H, Calcium 8.6, Phosphorus 3.7, Magnesium 1.8, Total Bilirubin 1.20 H, AST 12 L, ALT 10 L, Alkaline Phosphatase 62, Total Protein 6.6, Albumin 3.0 L, Globulin 3.6, Albumin/Globulin Ratio 0.8 L, Triglycerides 47, Cholesterol 85, LDL Cholesterol 43, VLDL Cholesterol 9, HDL Cholesterol 33 L, TSH 1.52 Micro: Microbiology 10/09/23 22:20 Mucosa - Nose SARS-CoV-2, Influenza & RSV (PCR) - Final Cardiology Labs/Tests 10/09/23 22:05: WBC 7.8, RBC 3.69 L, Hgb 10.8 L, Hct 33.9 L, MCV 91.9, MCH 29.3, MCHC 31.9 L, Plt Count 172, MPV 11.1, Immature Gran % (Auto) 0.300, Neut % (Auto) 77.7 H, Lymph % (Auto) 14.2 L, [place] % (Auto) 6.5, Eos % (Auto) 0.9, Baso % (Auto) 0.4, Absolute Neuts (auto) 6.0, Nucleated RBC % 0, PT 24.8 H, INR 2.3, APTT 38.8 H, Sodium 139, Potassium 3.4 L, Chloride 105, Carbon Dioxide 26.0, Anion Gap 8, BUN 30 H, Creatinine 1.17 H, Est GFR (MDRD) Af Amer 57 L, Est GFR (MDRD) Non-Af 47 L, BUN/Creatinine Ratio 25.6 H, Glucose 190 H, Calcium 8.8, Magnesium 1.8, Total Bilirubin 1.40 H, Direct Bilirubin 0.59 H, B-Natriuretic Peptide 1070.5 H 10/09/23 23:40: Urine Color Yellow, Urine Clarity Clear, Urine pH 5.0, Ur Specific [place] 1.015, Urine Protein 30 H, Urine Glucose (UA) NEGATIVE, Urine Ketones Negative, Urine Occult Blood 10 H, Urine Nitrite Negative, Urine Bilirubin Negative, Urine Urobilinogen 4 H, Ur Leukocyte Esterase Negative, Urine RBC 5-10 SEEN, Urine WBC 0-5 SEEN 10/10/23 05:20: WBC 7.7, RBC 3.75 L, Hgb 10.8 L, Hct 34.8 L, MCV 92.8, MCH 28.8, MCHC 31.0 L, Plt Count 160, MPV 11.6, Immature Gran % (Auto) 0.400, Neut % (Auto) 77.0 H, Lymph % (Auto) 14.9 L, [place] % (Auto) 7.2, Eos % (Auto) 0.1, Baso % (Auto) 0.4, Absolute Neuts (auto) 6.0, Nucleated RBC % 0, PT 24.2 H, INR 2.2, Sodium 139, Potassium 3.2 L, Chloride 105, Carbon Dioxide 28.0, Anion Gap 6, BUN 30 H, Creatinine 1.07 H, Est GFR (MDRD) Af Amer 63, Est GFR (MDRD) Non-Af 52 L, BUN/Creatinine Ratio 28.0 H, Glucose 141 H, Calcium 8.6, Phosphorus 3.7, Magnesium 1.8, Total Bilirubin 1.20 H, Triglycerides 47, Cholesterol 85, LDL Cholesterol 43, VLDL Cholesterol 9, HDL Cholesterol 33 L Rhythm: EKG: Atrial fibrillation with a controlled ventricular response rate and occasional premature ventricular complexes ECHO: Stress Test: Cardiac Cath: PCI: CT Surgery: Holter monitor: EPS: PPM: CXR: Chest CT Scan: Radiography Diagnostic Testing: Radiology Impression Chest X-Ray 10/09/23 22:08 IMPRESSION: Mild congestive heart failure with a small left pleural effusion. Electronically Signed: Kirby Hylton MD at 22:54 EDT Reading Location ID and State: [id number] / [place] Tel , Service support , Chest/Abdomen/Pelvis CT 10/09/23 22:46 IMPRESSION: 1. Multiple ill-defined noncalcified nodules in the right lung. 2. Markedly enlargement of the left lobe of the thyroid gland worrisome for a dominant nodule. 3. Moderate bilateral pleural effusions with bibasilar atelectasis. 4. Cardiomegaly. 5. 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 Electronically Signed: Kirby Hylton MD at 0:01 EDT ,
--- NOTE | 2023-10-10 08:35 | CON.PCM.CC_ITS ---
Assessment & Plan Assessment/Plan (1) Lung nodule, multiple: PLAN: Plan RECOMMENDATIONS: 1. Outpatient PET imaging after discharge. 2. Remainder of inpatient care per hospitalist and cardiology. 3. Will sign off. Please call with any additional questions. IMPRESSIONS: 1. Incidental pulmonary nodules noted on CT imaging The patient has no pre-existing lung condition or high risk exposure history. She is a lifelong non-smoker. There are tentative plans for ultrasound of the thyroid. From a pulmonary perspective, I would recommend outpatient pet imaging. This can be arranged after she is discharged from the hospital. No additional intervention or workup is warranted from my perspective while the patient is admitted to the hospital. Please have the patient follow-up in the pulmonary medicine clinic after discharge and we will make arrangements for pet imaging to be completed. This note was generated with [employer] software. It may contain incorrect words, spelling, and punctuation that were not noted in checking the note before signing. HPI Consult Data Date of Consult: 10/10/23 HPI Narrative Reason for Consultation: Lung nodules HPI Narrative: The patient is an 83-year-old female, with a history as outlined below, who pres ented to the emergency department on October 09 with shortness of breath and fatigue. The patient has no pre-existing lung conditions. She has never been diagnosed with any pulmonary nodules in the past. The patient was employed previously as a housewife, [place] She is a lifelong non- smoker. On presentation to the emergency department, the patient was documented to be afebrile and hemodynamically stable. She was saturating 94% on room air. Laboratory evaluation revealed a normal white blood cell count. Chemistry profile was notable for a potassium of 3.4 and creatinine of 1.17. BNP was elevated at 1070. CT chest demonstrated moderate bilateral pleural effusions with bilateral pulmonary nodules, the largest of which was approximately 1.5 cm in size in the right lung apex. The patient was subsequently admitted to the progressive care unit and placed on IV Lasix for volume optimization. Cardiology consultation was obtained. [facility] Medical History Atrial fibrillation Hypertension Stroke/cerebrovascular accident Home Medications carvedilol 6.25 mg tablet (Coreg) 6.25 mg PO BID 06/18/17 [History Last Taken Unknown] hydrochlorothiazide 50 mg tablet 25 mg PO DAILY 06/18/17 [History Last Taken Unknown] atorvastatin 40 mg tablet 40 mg PO QHS #30 tabs 06/20/17 [Rx Last Taken Unknown] warfarin 2 mg tablet 2 mg PO .COMPLEX 10/09/23 [History Last Taken Unknown] warfarin 2 mg tablet 4 mg PO .COMPLEX 10/09/23 [History Last Taken Unknown] hydrochlorothiazide 25 mg tablet 25 mg PO BID 10 days #20 tabs 10/10/23 [Rx Last Taken Unknown] ondansetron 4 mg disintegrating tablet 4 mg PO TID PRN nausea and vomiting #21 tabs 10/10/23 [Rx Last Taken Unknown] Allergy/AdvReac Type Severity Reaction Status Date / Time No Known Allergies Allergy Verified 06/18/17 21:08 Social History Smoking Status: Never smoker ROS ROS Narrative 10 systems were reviewed with pertinent positives as noted in the HPI above. Physical Exam Const alert and no apparent distress Constitutional Narrative: Family is present at the bedside. General Appearance: cooperative HEENT normocephalic and head/scalp atraumatic Eyes PERRL, EOMs intact bilaterally and conjunctivae normal Neck supple General: trachea midline Chest inspection of chest normal Resp normal respiratory effort Auscultation: Negative for rales, rhonchi or wheezes Cardio regular rate and regular rhythm GI normal to inspection, nondistended, normoactive bowel sounds Extremity no clubbing, cyanosis or edema Skin no rashes or lesions noted Neuro CN's II-XII intact bilaterally, moves all extremities and no focal motor deficits Psych cooperative and affect normal Lab / Micro Data 10/10/23 05:20 10/10/23 05:20 Labs: Laboratory Results - last 24 hr 10/09/23 22:05: WBC 7.8, RBC 3.69 L, Hgb 10.8 L, Hct 33.9 L, MCV 91.9, MCH 29.3, MCHC 31.9 L, RDW Std Deviation 50.4 H, RDW Coeff of Rosa Maria 14.9 H, Plt Count 172, MPV 11.1, Immature Gran % (Auto) 0.300, Neut % (Auto) 77.7 H, Lymph % (Auto) 14.2 L, [place] % (Auto) 6.5, Eos % (Auto) 0.9, Baso % (Auto) 0.4, Absolute Neuts (auto) 6.0, Absolute Lymphs (auto) 1.10, Nucleated RBC % 0, PT 24.8 H, INR 2.3, APTT 38.8 H, Sodium 139, Potassium 3.4 L, Chloride 105, Carbon Dioxide 26.0, Anion Gap 8, BUN 30 H, Creatinine 1.17 H, Estim Creat Clear Calc 36.05, Est GFR (MDRD) Af Amer 57 L, Est GFR (MDRD) Non-Af 47 L, BUN/Creatinine Ratio 25.6 H, Glucose 190 H, Calcium 8.8, Magnesium 1.8, Total Bilirubin 1.40 H, Direct Bilirubin 0.59 H, AST 14 L, ALT 11 L, Alkaline Phosphatase 63, B-Natriuretic Peptide 1070.5 H, Total Protein 6.9, Albumin 3.1 L, Globulin 3.8 10/09/23 23:40: Urine Color Yellow, Urine Clarity Clear, Urine pH 5.0, Ur Specific [place] 1.015, Urine Protein 30 H, Urine Glucose (UA) NEGATIVE, Urine Ketones Negative, Urine Occult Blood 10 H, Urine Nitrite Negative, Urine Bilirubin Negative, Urine Urobilinogen 4 H, Ur Leukocyte Esterase Negative, Urine RBC 5-10 SEEN, Urine WBC 0-5 SEEN, Ur Squamous Epith Cells 5-10 SEEN, Urine Bacteria 3+, Urine Mucus 0 SEEN 10/10/23 05:20: WBC 7.7, RBC 3.75 L, Hgb 10.8 L, Hct 34.8 L, MCV 92.8, MCH 28.8, MCHC 31.0 L, RDW Std Deviation 51.4 H, RDW Coeff of Rosa Maria 15.0 H, Plt Count 160, MPV 11.6, Immature Gran % (Auto) 0.400, Neut % (Auto) 77.0 H, Lymph % (Auto) 14.9 L, [place] % (Auto) 7.2, Eos % (Auto) 0.1, Baso % (Auto) 0.4, Absolute Neuts (auto) 6.0, Absolute Lymphs (auto) 1.15, Nucleated RBC % 0, PT 24.2 H, INR 2.2, Sodium 139, Potassium 3.2 L, Chloride 105, Carbon Dioxide 28.0, Anion Gap 6, BUN 30 H, Creatinine 1.07 H, Estim Creat Clear Calc 37.73, Est GFR (MDRD) Af Amer 63, Est GFR (MDRD) Non-Af 52 L, BUN/Creatinine Ratio 28.0 H, Glucose 141 H, Calcium 8.6, Phosphorus 3.7, Magnesium 1.8, Total Bilirubin 1.20 H, AST 12 L, ALT 10 L, Alkaline Phosphatase 62, Total Protein 6.6, Albumin 3.0 L, Globulin 3.6, Albumin/Globulin Ratio 0.8 L, Triglycerides 47, Cholesterol 85, LDL Cholesterol 43, VLDL Cholesterol 9, HDL Cholesterol 33 L, TSH 1.52 Micro: Microbiology 10/09/23 22:20 Mucosa - Nose SARS-CoV-2, Influenza & RSV (PCR) - Final Imaging Radiology Impression Chest X-Ray 10/09/23 22:08 IMPRESSION: Mild congestive heart failure with a small left pleural effusion. Electronically Signed: Kirby Hylton MD at 22:54 EDT Reading Location ID and State: [id number] / [employer] , Service support , Chest/Abdomen/Pelvis CT 10/09/23 22:46 IMPRESSION: 1. Multiple ill-defined noncalcified nodules in the right lung. 2. Markedly enlargement of the left lobe of the thyroid gland worrisome for a dominant nodule. 3. Moderate bilateral pleural effusions with bibasilar atelectasis. 4. Cardiomegaly. 5. 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 Electronically Signed: Kirby Hylton MD at 0:01 EDT , Charges/Coding Visit Charges Inpatient E&M: 19866 Init Hosp L2
[2023-10-10] MEDS: Magnesium Chloride 64 MG Delay Rel.Tablet 128 MG PO ×2 (11:02→21:31)
[2023-10-10] MEDS: 0.9% Saline Lock 10 ML Syringe IV ×2 (11:02→17:47)
[2023-10-10] MEDS: Potassium Chloride Oral Tablet 20 MEQ 40 MEQ PO (11:09)
--- NOTE | 2023-10-10 11:21 | EKG12_ITS ---
Test Reason : Blood Pressure : / mmHG Vent. Rate : 052 BPM Atrial Rate : 234 BPM P-R Int : 000 ms QRS Dur : 132 ms QT Int : 518 ms P-R-T Axes : 000 001 148 degrees QTc Int : 481 ms Atrial fibrillation Non-specific intra-ventricular conduction block T wave abnormality, consider lateral ischemia Abnormal ECG When compared with ECG of 19-JUN-2017 05:23, Current undetermined rhythm precludes rhythm comparison, needs review Non-specific intra-ventricular conduction block has replaced Incomplete left bundle branch block T wave inversion more evident in Lateral leads QT has lengthened Confirmed by ASHA HARRISON, ANEUDY ([id number]), purchasing expeditor URVASHI LANDERS ([id number]) on 10/11/2023 8:35:07 AM Referred By: MATT Confirmed By:ANEUDY BARRY MD
--- NOTE | 2023-10-10 11:30 | CASEMGMT ---
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 Pt voices understanding and consents to?assessment?at this time.? Pt resting in bed in no distress at this time.?Daughter, Fran, and DIL present @ bedside and pt agreeable to them being present during assessment. Pt is A/O at this time and answers all questions appropriately.?? Care providers, pharmacy, and demographics verified/updated at this time. PCP: Dr Adams Specialists: none Preferred Pharmacy: [facility] [place] [facility] [place]: none ? LNOK: Dtr, Verba. Living Arrangements: Lives alone in 2-story home w/basement w/a few steps to enter. [employer]SU. Fran and her family lives across the yard as well as another one of pt's adult children and family. Pt is mostly independent w/ADL's. Fran will set-up for showering. Pt able to prepare some meals, but family does most of them and they do home mgnt tasks. Fran over-sees/assists w/medications. Transportation:?Hire drivers DME: ?States has the following DME:?shower chair, walker, BP machine. No pulse ox. Recommended to get one and they state will have someone purchase one @ [facility]. No home O2. Pt does not have electricity but does have a generator. Discussed possibility of qualifying for home O2 @ discharge and questions answered. They do not have preference of DME co. HHC/SNF: No hx of either. PT eval pending. Dr Lock's nurse goes to pt's home for monthly (or more frequently, if needed) INR draws. PLAN:? Anticipate pt will discharge?home w/family support. Follow for possible home O2 PT eval pending. Nithin BSN?RN?CM
--- NOTE | 2023-10-10 11:45 | PN.HOSP_ITS ---
Reason for Visit Reason for Visit: Diagnoses Nontoxic single thyroid nodule (10/10/23) Hypokalemia (10/10/23) Chronic atrial fibrillation (10/10/23) Heart failure, unspecified (10/10/23) Pleural effusion, not elsewhere classified (10/10/23) Other abnormalities of breathing (10/10/23) Other nonspecific abnormal finding of lung field (10/10/23) Personal history of transient ischemic attack (TIA), and cerebral infarction wi thout residual deficits (10/10/23) Subjective Subjective Patient presented overnight with worsening shortness of breath and fatigue concerning for heart failure exacerbation. Patient seen at bedside this morning, family members present. Patient was sitting up fairly comfortably in bed, conversing normally, in no acute distress. She was breathing comfortably on 2 L nasal cannula at rest. Stated she had been in bed since coming over to the floor, had not gotten up yet to walk around. She reported good urine output on the IV Lasix. States that she generally feels better than she did overnight. No other acute concerns. Saw patient and family again at the bedside this afternoon after thyroid ultrasound and echo results were available. Thyroid ultrasound showed a 4.9 x 5.2 cm dominant solid mass in the left lobe of the thyroid with intranodular vascularity concerning for malignancy. Echo showed EF 55%, moderate biatrial dilation, moderate to severe pulmonary hypertension. I discussed patient's case over the phone with Dr. Torrez with general surgery prior to seeing the family, and he will schedule patient for an outpatient thyroid biopsy shortly after discharge. Also discussed with Dr. Collado with pulmonology and Dr. Segovia with cardiology. Per Dr. Collado, no inpatient management needed from a pulmonary standpoint, will need PET/CT scan in the outpatient setting for malignancy workup. Per Dr. Segovia, no cardiac intervention needed, recommendation was to optimize medical therapy. Discussed these recommendations with the patient and family and they were in agreement with these things. Objective Data Objective Data Vital Signs: Vital Signs Temp Pulse Resp BP Pulse Ox O2 Del Method O2 Flow Rate 97 F L 58 L 18 130/60 H 97 Nasal Cannula 2 10/10/23 06:30 10/10/23 06:30 10/10/23 06:30 10/10/23 06:30 10/10/23 07:50 10/10/23 07:50 10/10/23 07:50 Oxygen Flow Rate (L/min) 2 Oxygen Delivery Method Nasal Cannula Weight: 73.6 kg Body Mass Index (BMI) 27.8 Lab / Micro Data 10/10/23 05:20 10/10/23 05:20 Labs: Laboratory Results - last 24 hr 10/09/23 22:05: WBC 7.8, RBC 3.69 L, Hgb 10.8 L, Hct 33.9 L, MCV 91.9, MCH 29.3, MCHC 31.9 L, RDW Std Deviation 50.4 H, RDW Coeff of Rosa Maria 14.9 H, Plt Count 172, MPV 11.1, Immature Gran % (Auto) 0.300, Neut % (Auto) 77.7 H, Lymph % (Auto) 14.2 L, Upson % (Auto) 6.5, Eos % (Auto) 0.9, Baso % (Auto) 0.4, Absolute Neuts (auto) 6.0, Absolute Lymphs (auto) 1.10, Nucleated RBC % 0, PT 24.8 H, INR 2.3, APTT 38.8 H, Sodium 139, Potassium 3.4 L, Chloride 105, Carbon Dioxide 26.0, Anion Gap 8, BUN 30 H, Creatinine 1.17 H, Estim Creat Clear Calc 36.05, Est GFR (MDRD) Af Amer 57 L, Est GFR (MDRD) Non-Af 47 L, BUN/Creatinine Ratio 25.6 H, Glucose 190 H, Calcium 8.8, Magnesium 1.8, Total Bilirubin 1.40 H, Direct Bilirubin 0.59 H, AST 14 L, ALT 11 L, Alkaline Phosphatase 63, B-Natriuretic Peptide 1070.5 H, Total Protein 6.9, Albumin 3.1 L, Globulin 3.8 10/09/23 23:40: Urine Color Yellow, Urine Clarity Clear, Urine pH 5.0, Ur Specific [place] 1.015, Urine Protein 30 H, Urine Glucose (UA) NEGATIVE, Urine Ketones Negative, Urine Occult Blood 10 H, Urine Nitrite Negative, Urine Bilirubin Negative, Urine Urobilinogen 4 H, Ur Leukocyte Esterase Negative, Urine RBC 5-10 SEEN, Urine WBC 0-5 SEEN, Ur Squamous Epith Cells 5-10 SEEN, Urine Bacteria 3+, Urine Mucus 0 SEEN 10/10/23 05:20: WBC 7.7, RBC 3.75 L, Hgb 10.8 L, Hct 34.8 L, MCV 92.8, MCH 28.8, MCHC 31.0 L, RDW Std Deviation 51.4 H, RDW Coeff of Rosa Maria 15.0 H, Plt Count 160, MPV 11.6, Immature Gran % (Auto) 0.400, Neut % (Auto) 77.0 H, Lymph % (Auto) 14.9 L, Upson % (Auto) 7.2, Eos % (Auto) 0.1, Baso % (Auto) 0.4, Absolute Neuts (auto) 6.0, Absolute Lymphs (auto) 1.15, Nucleated RBC % 0, PT 24.2 H, INR 2.2, Sodium 139, Potassium 3.2 L, Chloride 105, Carbon Dioxide 28.0, Anion Gap 6, BUN 30 H, Creatinine 1.07 H, Estim Creat Clear Calc 37.73, Est GFR (MDRD) Af Amer 63, Est GFR (MDRD) Non-Af 52 L, BUN/Creatinine Ratio 28.0 H, Glucose 141 H, Calcium 8.6, Phosphorus 3.7, Magnesium 1.8, Total Bilirubin 1.20 H, AST 12 L, ALT 10 L, Alkaline Phosphatase 62, Total Protein 6.6, Albumin 3.0 L, Globulin 3.6, Albumin/Globulin Ratio 0.8 L, Triglycerides 47, Cholesterol 85, LDL Cho lesterol 43, VLDL Cholesterol 9, HDL Cholesterol 33 L, TSH 1.52 Micro: Microbiology 10/09/23 22:20 Mucosa - Nose SARS-CoV-2, Influenza & RSV (PCR) - Final Radiography Diagnostic Testing: Radiology Impression Chest X-Ray 10/09/23 22:08 IMPRESSION: Mild congestive heart failure with a small left pleural effusion. Electronically Signed: Kirby Hylton MD at 22:54 EDT , Chest/Abdomen/Pelvis CT 10/09/23 22:46 IMPRESSION: 1. Multiple ill-defined noncalcified nodules in the right lung. 2. Markedly enlargement of the left lobe of the thyroid gland worrisome for a dominant nodule. 3. Moderate bilateral pleural effusions with bibasilar atelectasis. 4. Cardiomegaly. 5. 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 Electronically Signed: Kriby Hylton MD at 0:01 EDT , Thyroid Ultrasound 10/10/23 04:21 IMPRESSION: Heterogeneous appearance of both lobes of the thyroid. Enlarged left lobe of the thyroid with a dominant solid mass measuring 4.9 sono by 4.9+ by 5.2 cm. Intranodular vascularity is seen. Biopsy recommended. Electronically Signed: Joaquim Nieves MD at 11:22 EDT , Physical Exam Const alert, oriented x3, no apparent distress and average body habitus Constitutional Narrative: Pleasant elderly female, fatigued appearing, otherwise laying comfortably in bed, conversing normally, in no acute distress. General Appearance: cooperative and comfortable HEENT normocephalic, head/scalp atraumatic, hearing grossly normal bilaterally, nasal mucous membranes and turbinates normal and moist oral mucous membranes Eyes PERRL, EOMs intact bilaterally and conjunctivae normal Neck full ROM Neck Narrative: Large left-sided thyroid nodule noted. Chest inspection of chest normal Resp normal respiratory effort and no use of accessory muscles Resp Narrative: Breathing comfortably on 2 L nasal cannula at rest. Mildly decreased breath sounds bilaterally, worse at lung bases. No wheezing or crackles noted. Cardio regular rate, regular rhythm, no murmurs and peripheral pulses 2+ throughout GI normal to inspection, nondistended, normoactive bowel sounds, soft to palpation, non-tender and non-distended Back/Spine normal ROM Extremity normal to inspection, full ROM and no pedal edema Skin no rashes or lesions noted Neuro no focal motor deficits and no sensory deficits noted Speech: speech normal Psych mental status grossly normal Assessment & Plan Assessment/Plan (1) Lung nodule, multiple: (2) Thyroid nodule: (3) Congestive heart failure: QUALIFIERS: Heart failure type: unspecified Heart failure chronicity: acute on chronic Qualified Code(s): I50.9 - Heart failure, unspecified PLAN: Plan Patient is an 83-year-old female who presented [facility] ED on 10/10/2023 with worsening fatigue and shortness of breath. 1. Mild heart failure exacerbation with acute hypoxia; moderate pulmonary hypertension Chest x-ray and CT chest on admit showed moderate bilateral pleural effusions with cardiomegaly. BNP 1070. Echo on 10/09 showed EF 55%, normal LV size and function, biatrial enlargement, moderate pulmonary hypertension with pulmonary artery systolic pressure of 69 mmHg. Not on home O2, requiring up to 4 L nasal cannula to maintain oxygen saturations greater than 90%. ? Cardiology evaluated. Suspected that changes on echo are secondary to hypertensive heart disease and A-fib, no acute invention required, recommended optimizing medical management. Will continue IV Lasix 40 mg twice daily for now with hope to transition to p.o. Lasix tomorrow in preparation for discharge. Continue home Coreg, initiated on losartan on 10/09. Home hydrochlorothiazide discontinued. Continue home atorvastatin. Will plan for O2 ambulatory test tomorrow morning. 2. Large left thyroid nodule concerning for malignancy; multiple small left lung nodules CT chest on admit showed a large left thyroid nodule. Thyroid ultrasound showed an enlarged left lobe of the thyroid with a dominant solid mass measuring 4.9 x 5.2 cm with intranodular vascularity seen concerning for malignancy. CT chest also showed multiple small ill-defined noncalcified left lung nodules. TSH normal. ? Pulmonology evaluated, recommended outpatient PET/CT scan for further workup, no inpatient pulmonary needs. Discussed with Dr. Torrez with general surgery on 10/09, will plan for outpatient thyroid biopsy shortly after discharge. Will need to determine bridging needs with warfarin prior to biopsy. 3. Chronic A-fib on warfarin ? Rate controlled during hospitalization. INR in therapeutic range. Continue h ome Coreg and warfarin. 4. Anemia ? Hemoglobin 10.8 on admit, no previous values in records since 2017. Hemoglobin stable at 10.8 on hospital day 2. Outpatient follow-up as needed. Chronic medical conditions: ? History of CVA in 2017: No residual deficits. Stable. ? Hypertension/hyperlipidemia: Continue medications as noted above. ? OA: Tylenol as needed. DVT prophylaxis: Warfarin CODE STATUS: Full code, unverified Expected disposition: Home, 1 to 2 days Total clinical time spent by myself addressing the patient's medical issues, reviewing all the data, and collaborating with patient's care team: 35 minutes. Charges/Coding Visit Charges Inpatient E&M: 10933 Subs Hosp L2
[2023-10-10] MEDS: Atorvastatin Calcium 40 MG Tablet PO (21:31)
[2023-10-11] VITALS (9 sets, daily range): BP systolic 100–125; BP diastolic 44–57; PULSE 45–71; RESP 12–18; TEMP 36.4–36.8; O2SAT 84–96; BMI 27.6
[2023-10-11 08:17] LABS: Anion Gap 5 (5-15); BUN 29 mg/dL (7-18); BUN/Creat Ratio 26.6 RATIO (10-20); Calcium,Total 8.9 mg/dL (8.5-10.1); Chloride 104 mmol/L (98-107); Creatinine, Serum 1.09 mg/dL (0.55-1.02); EST Glomerular Filtration Rate 51 mL/min (>60); Est Glom Filt Rate - Afr Amer 61 mL/min (>60); Estimated Creatinine Clearance 36.97 ml/min; Glucose 89 mg/dL (74-106); Potassium 3.3 mmol/L (3.5-5.1); Sodium Level 142 mmol/L (136-145)
[2023-10-11] MEDS: Furosemide 40 MG/4 ML Vial IV (08:23)
[2023-10-11] MEDS: Potassium Chloride Oral Tablet 20 MEQ 40 MEQ PO (08:23)
[2023-10-11] MEDS: 0.9% Saline Lock 10 ML Syringe IV (08:24)
[2023-10-11] MEDS: Losartan Potassium 50 MG Tablet PO (08:24)
[2023-10-11] MEDS: Magnesium Chloride 64 MG Delay Rel.Tablet 128 MG PO ×2 (08:24→22:33)
--- NOTE | 2023-10-11 11:55 | PCM.PN.HOSP ---
Reason for Visit Reason for Visit: Diagnoses Nontoxic single thyroid nodule (10/10/23) Hypokalemia (10/10/23) Essential (primary) hypertension (10/10/23) Chronic atrial fibrillation (10/10/23) Heart failure, unspecified (10/10/23) Pleural effusion, not elsewhere classified (10/10/23) Other abnormalities of breathing (10/10/23) Other nonspecific abnormal finding of lung field (10/10/23) Personal history of transient ischemic attack (TIA), and cerebral infarction without residual deficits (10/10/23) Subjective Subjective No acute events overnight. Patient seen at bedside this morning, family members present. Patient sitting up comfortably in bedside chair, in no acute distress. She had not been out of the bedside chair yet for her oxygen qualification test. She denied any shortness of breath at rest. Stated that her cough felt mild to moderately improved from admission. She does report good urine output on IV Lasix. Denies any pain or discomfort today. No other acute concerns. Objective Data Objective Data Vital Signs: Vital Signs Temp Pulse Resp BP Pulse Ox O2 Del Method O2 Flow Rate 97.5 F L 45 L 15 125/49 H 95 Nasal Cannula 0 10/11/23 08:20 10/11/23 08:20 10/11/23 08:20 10/11/23 08:20 10/11/23 11:11 10/11/23 08:20 10/11/23 11:11 Oxygen Flow Rate (L/min) [ 4 AMBULATING with Oxygen #2] Oxygen Flow Rate (L/min) [ 2 AMBULATING with Oxygen #1] Oxygen Flow Rate (L/min) [ 0 AMBULATING on Room Air] Oxygen Flow Rate (L/min) [At 0 REST on Room Air] Oxygen Flow Rate (L/min) 2 Oxygen Delivery Method Nasal Cannula Weight: 73.1 kg Body Mass Index (BMI) 27.6 Intake & Output: Intake and Output for Last 24 Hours 10/09/23 10/10/23 10/11/23 23:59 23:59 23:59 Intake Total 900 / 900 Output Total 750 / 1250 500 / 500 Balance 150 / -350 -500 / -500 Lab / Micro Data 10/10/23 05:20 10/11/23 06:45 Labs: Laboratory Results - last 24 hr 10/11/23 06:45: Sodium 142, Potassium 3.3 L, Chloride 104, Carbon Dioxide 33.0 H, Anion Gap 5, BUN 29 H, Creatinine 1.09 H, Estim Creat Clear Calc 36.97, Est GFR (MDRD) Af Amer 61, Est GFR (MDRD) Non-Af 51 L, BUN/Creatinine Ratio 26.6 H, Glucose 89, Calcium 8.9 Micro: Microbiology 10/09/23 23:40 Urine, Clean Catch Urine Culture - Preliminary Culture exhibits no growth. 10/09/23 22:20 Mucosa - Nose SARS-CoV-2, Influenza & RSV (PCR) - Final Radiography Diagnostic Testing: Radiology Impression Chest X-Ray 10/10/23 05:55 IMPRESSION: There has been improvement of the CHF with residual pleural parenchymal changes seen at the left lung base. Electronically Signed: Joaquim Nieves MD at 15:42 EDT Reading Location ID and State: [facility] / [place] , Service support , Physical Exam Const alert, oriented x3, no apparent distress and average body habitus Constitutional Narrative: Pleasant elderly female, fatigued appearing, otherwise sitting comfortably in bedside chair, conversing normally, in no acute distress. General Appearance: cooperative and comfortable HEENT normocephalic, head/scalp atraumatic, hearing grossly normal bilaterally, nasal mucous membranes and turbinates normal and moist oral mucous membranes Eyes PERRL, EOMs intact bilaterally and conjunctivae normal Neck full ROM Neck Narrative: Large left-sided thyroid nodule noted. Chest inspection of chest normal Resp normal respiratory effort and no use of accessory muscles Resp Narrative: Breathing comfortably on 2 L nasal cannula at rest. Mildly decreased breath sounds bilaterally, worse at lung bases. No wheezing or crackles noted. Cardio regular rate, regular rhythm, no murmurs and peripheral pulses 2+ throughout GI normal to inspection, nondistended, normoactive bowel sounds, soft to palpation, non-tender and non-distended Back/Spine normal ROM Extremity normal to inspection and full ROM Extremity Narrative: Mild nonpitting lower extremity edema, stable. Skin no rashes or lesions noted Neuro no focal motor deficits and no sensory deficits noted Speech: speech normal Psych mental status grossly normal Assessment & Plan Assessment/Plan (1) Lung nodule, multiple: (2) Thyroid nodule: (3) Congestive heart failure: QUALIFIERS: Heart failure type: unspecified Heart failure chronicity: acute on chronic Qualified Code(s): I50.9 - Heart failure, unspecified PLAN: Plan Patient is an 83-year-old female who presented [facility] ED on 10/10/2023 with worsening fatigue and shortness of breath. 1. Mild heart failure exacerbation with acute hypoxia; moderate pulmonary hypertension Chest x-ray and CT chest on admit showed moderate bilateral pleural effusions with cardiomegaly. BNP 1070. Echo on 10/09 showed EF 55%, normal LV size and function, biatrial enlargement, moderate pulmonary hypertension with pulmonary artery systolic pressure of 69 mmHg. Not on home O2, requiring up to 4 L nasal cannula to maintain oxygen saturations greater than 90%. ? Cardiology evaluated. Suspected that changes on echo are secondary to hypertensive heart disease and A-fib, no acute invention required, recommended optimizing medical management. Patient completed oxygen qualification test on 10/10, required 4 L nasal cannula with exertion and no oxygen at rest. Patient notably did have significant dyspnea on exertion. Will increase to IV Lasix 40 mg 3 times daily, recheck BMP tomorrow morning and repeat oxygen qualification test with hope for transition to p.o. Lasix tomorrow in preparation for discharge. Continue home Coreg, initiated on losartan on 10/09. Home hydrochlorothiazide discontinued. Continue home atorvastatin. 2. Large left thyroid nodule concerning for malignancy; multiple small left lung nodules CT chest on admit showed a large left thyroid nodule. Thyroid ultrasound showed an enlarged left lobe of the thyroid with a dominant solid mass measuring 4.9 x 5.2 cm with intranodular vascularity seen concerning for malignancy. CT chest also showed multiple small ill-defined noncalcified left lung nodules. TSH normal. ? Pulmonology evaluated, recommended outpatient PET/CT scan for further workup, no inpatient pulmonary needs. Discussed with Dr. Torrez with general surgery, patient scheduled for outpatient thyroid biopsy on 10/23. Patient will need to hold warfarin prior to that biopsy per surgery recommendations. 3. Chronic A-fib on warfarin ? Rate controlled during hospitalization. INR in therapeutic range. Continue home Coreg and warfarin. 4. Anemia ? Hemoglobin 10.8 on admit, no previous values in records since 2016. Hemoglobin stable at 10.8 on hospital day 2. Outpatient follow-up as needed. Chronic medical conditions: ? History of CVA in 2017: No residual deficits. Stable. ? Hypertension/hyperlipidemia: Continue medications as noted above. ? OA: Tylenol as needed. DVT prophylaxis: Warfarin CODE STATUS: Full code, unverified Expected disposition: Home, 1 to 2 days Total clinical time spent by myself addressing the patient's medical issues, reviewing all the data, and collaborating with patient's care team: 35 minutes. Charges/Coding Visit Charges Inpatient E&M: 20183 Subs Hosp L2
[2023-10-11] MEDS: LACTATED RINGERS 500 ML 999 ML IV (16:59)
[2023-10-11] MEDS: Jantoven 2 MG Tablet PO (17:00)
[2023-10-11 17:02] LABS: Base Excess 4 mmol/L (-2 to +2); Bicarbonate 28.2 mmol/L (22-26); Blood Gas Specimen Type ART; Mode Not entered; O2 Delivery Device Cannula; PO2 85 mmHG (75-100); SITE R Radial; SO2 97 % (95-99); Total Carbon Dioxide 30 mmol/L; pCO2 41.5 mmHg (35-45); pH 7.44 (7.35-7.45)
[2023-10-11] MEDS: Acetaminophen 325 MG Tablet 650 MG PO (22:32)
[2023-10-11] MEDS: Atorvastatin Calcium 40 MG Tablet PO (22:33)
[2023-10-12 03:27] VITALS: BMI 28.0
[2023-10-12 04:42] VITALS: BP 108/50; PULSE 55; RESP 18; TEMP 36.4; O2SAT 94
[2023-10-12 07:27] VITALS: O2SAT 93
[2023-10-12 07:28] LABS: Anion Gap 4 (5-15); BUN 31 mg/dL (7-18); Calcium,Total 8.8 mg/dL (8.5-10.1); Chloride 104 mmol/L (98-107); Creatinine, Serum 1.07 mg/dL (0.55-1.02); EST Glomerular Filtration Rate 52 mL/min (>60); Est Glom Filt Rate - Afr Amer 63 mL/min (>60); Estimated Creatinine Clearance 37.95 ml/min; Glucose 87 mg/dL (74-106); Potassium 3.9 mmol/L (3.5-5.1); Sodium Level 140 mmol/L (136-145)
[2023-10-12 07:55] VITALS: BP 123/52; PULSE 48; RESP 14; TEMP 36.8; O2SAT 94
[2023-10-12] MEDS: Magnesium Chloride 64 MG Delay Rel.Tablet 128 MG PO (08:02)
[2023-10-12 08:28] LABS: BNP,B-Type NATRIURETIC PEPTIDE 536.7 pg/mL (0-100)
[2023-10-12 10:34] VITALS: O2SAT 86; O2SAT 90; O2SAT 93
--- NOTE | 2023-10-12 11:22 | PCM.DC ---
Discharge Instructions Diet Discharge Diet: No restrictions Activity Discharge Activity: No Restrictions Weight Bearing Status: Full weight bearing Follow Up Care Test Results: Test results from this visit will be discussed in further detail at your follow-up appointment, if applicable. Discharge Plan Admission Admit Date/Time: 10/10/23 03:27 Primary Reason for Your Visit: Worsening shortness of breath Attending Provider: John Mendenhall Primary Care Provider: Kaden Adams Consulting Providers: Frank Baez Instructions Patient Instructions: ED Heart Failure, Congestive (CHF), ED Pleural Effusion Additional Instructions / Restrictions: Please take the low-dose Coreg, Lasix and spironolactone for your heart failure and high blood pressure for now. Follow-up with a automatic teller machine servicer in the office in the next few weeks for further medication titration. Please stop taking warfarin 5 days prior to your biopsy (stop taking on 10/19); follow up with your PCP and you can have an INR level drawn 1-2 days before the biopsy to see what the level is and possibly make further adjustments with the warfarin as needed. Discharge Orders/Prescriptions Prescriptions: New ondansetron 4 mg tablet,disintegrating 4 mg PO TID PRN (Reason: nausea and vomiting) Qty: 21 0RF furosemide [Lasix] 20 mg tablet 20 mg PO DAILY 30 Days Qty: 30 0RF spironolactone 25 mg tablet 12.5 mg PO DAILY 30 Days Qty: 15 0RF carvedilol [Coreg] 3.125 mg tablet 3.125 mg PO BID 30 Days Qty: 60 0RF Rx Instructions: must administer with a meal/food Continued atorvastatin 40 MG tablet 40 mg PO QHS Qty: 30 0RF warfarin 2 mg tablet 2 mg PO .COMPLEX Rx Instructions: 2 mg orally Sun, Tu, Wed, Thus, Sat; warfarin 2 mg tablet 4 mg PO .COMPLEX Rx Instructions: 4 mg orally Mon, Fri; Discontinued carvedilol [Coreg] 6.25 MG tablet 6.25 mg PO BID hydrochlorothiazide 50 MG tablet 25 mg PO DAILY Referrals / Follow Up: Kaden Adams DO [Primary Care Provider] - Adam Torrez MD [Med Staff - Active Staff] - 10/24/23 9:00 am Disposition Disposition (needs filled in before D/C Order can be placed): Home, Self Care
--- NOTE | 2023-10-12 11:30 | PCM.DC.SUM ---
Providers Date of Admission: 10/10/23 Date of Discharge: 10/12/23 Primary Care Physician: Dr. Kaden Adams, Consultations 10/10/23 04:21 Consult: Cardiology Routine Consulting Provider: [facility] Reason for Consult: AE CHF EMERGENT Consult: No MD Notified: No Date Notified: 10/10/23 Time Notified: 03:32 Method of Consult:: In-Person Consult: Chancery Clerk / Pulmonary Medicine Routine Consulting Provider: Intensivists/Pulmonary Med Reason for Consult: Multiple lung nodules on the right on CT this admission. EMERGENT Consult: No MD Notified: Yes Date Notified: 10/10/23 Time Notified: 06:36 Method of Notification: Text Reason For Visit: AE CHF, RESPIRATORY INSUFFICIENCY, N/V AND Diagnosis Discharge Diagnosis (1) Lung nodule, multiple: Status: Acute Code(s): R91.8 - Other nonspecific abnormal finding of lung field (2) Thyroid nodule: Status: Acute Code(s): E04.1 - Nontoxic single thyroid nodule (3) Congestive heart failure: Status: Acute Code(s): I50.9 - Heart failure, unspecified Qualifiers: Heart failure chronicity: acute on chronic Heart failure type: unspecified Qualified Code(s): I50.9 - Heart failure, unspecified Medications at Discharge Home Medications atorvastatin 40 mg tablet 40 mg PO QHS #30 tabs 06/20/17 warfarin 2 mg tablet 2 mg PO .COMPLEX 10/09/23 warfarin 2 mg tablet 4 mg PO .COMPLEX 10/09/23 ondansetron 4 mg disintegrating tablet 4 mg PO TID PRN nausea and vomiting #21 tabs 10/10/23 carvedilol 3.125 mg tablet (Coreg) 3.125 mg PO BID 30 days #60 tabs 10/12/23 furosemide 20 mg tablet (Lasix) 20 mg PO DAILY 30 days #30 tabs 10/12/23 spironolactone 25 mg tablet 12.5 mg (1/2 x 25 mg) PO DAILY 30 days #15 tabs 10/12/23 Hospital Course Operations None Procedures EKG, Transthoracic echo and - (Chest x-ray x 2, thyroid ultrasound, CT chest abdomen pelvis with contrast) Summary of Care Provided Minutes Spent on Discharge: 35 Hospital Course: Patient is an 83-year-old female who presented [facility] ED on 10/10/2023 with worsening fatigue and shortness of breath. Hospital course as noted below. Patient discharged home with no therapy needs in stable condition on 10/11. 1. Mild heart failure exacerbation with acute hypoxia; moderate pulmonary hypertension Chest x-ray and CT chest on admit showed moderate bilateral pleural effusions with cardiomegaly. BNP 1070. Echo on 10/09 showed EF 55%, normal LV size and function, biatrial enlargement, moderate pulmonary hypertension with pulmonary artery systolic pressure of 69 mmHg. Not on home O2, requiring up to 4 L nasal cannula to maintain oxygen saturations greater than 90%. ? Cardiology evaluated. Suspected that changes on echo are secondary to hypertensive heart disease and A-fib, no acute invention required, recommended optimizing medical management. Patient had some hypotension on evening of 10/10 that improved with IV fluids, likely had been overdiuresed. She did have fairly persistent bradycardia to the 40s and 50s on 10/10 and 10/11 as well. Discharged on Coreg 3.125 mg twice daily, Lasix 20 mg daily and spironolactone 12.5 mg daily. Continue home atorvastatin. Recommend close outpatient follow-up with cardiology for further medication titration. Patient completed oxygen qualification test on day of discharge, required 2 L nasal cannula with exertion and no supplemental oxygen at rest. I have reviewed the oxygen testing, and this patient qualifies for the home equipment and portability. The patient is mobile in the home and the community. 2. Large left thyroid nodule concerning for malignancy; multiple small left lung nodules CT chest on admit showed a large left thyroid nodule. Thyroid ultrasound showed an enlarged left lobe of the thyroid with a dominant solid mass measuring 4.9 x 5.2 cm with intranodular vascularity seen concerning for malignancy. CT chest also showed multiple small ill-defined noncalcified left lung nodules. TSH normal. ? Pulmonology evaluated, recommended outpatient PET/CT scan for further workup, no inpatient pulmonary needs. Discussed with Dr. Torrez with general surgery, patient scheduled for outpatient thyroid biopsy on 10/23. Patient will need to hold warfarin prior to that biopsy for 5 days with goal INR less than 1.5. 3. Chronic A-fib on warfarin ? Rate controlled during hospitalization. INR in therapeutic range. Continue home Coreg and warfarin. 4. Anemia ? Hemoglobin 10.8 on admit, no previous values in records since 2017. Hemoglobin stable at 10.8 on hospital day 2. Outpatient follow-up as needed. Chronic medical conditions: ? History of CVA in 2017: No residual deficits. Stable. ? Hypertension/hyperlipidemia: Continue medications as noted above. ? OA: Tylenol as needed. Total clinical time spent by myself addressing the patient's medical issues, reviewing all the data, and collaborating with patient's care team: 35 minutes. Physical Exam Const alert, oriented x3, no apparent distress and average body habitus Constitutional Narrative: Pleasant elderly female, fatigued appearing, otherwise sitting comfortably in bedside chair, conversing normally, in no acute distress. General Appearance: cooperative and comfortable HEENT normocephalic, head/scalp atraumatic, hearing grossly normal bilaterally, nasal mucous membranes and turbinates normal and moist oral mucous membranes Eyes PERRL, EOMs intact bilaterally and conjunctivae normal Neck full ROM Neck Narrative: Large left-sided thyroid nodule noted. Chest inspection of chest normal Resp normal respiratory effort and no use of accessory muscles Resp Narrative: Breathing comfortably on 2 L nasal cannula at rest. Mildly decreased breath sounds bilaterally, worse at lung bases. No wheezing or crackles noted. Cardio regular rate, regular rhythm, no murmurs and peripheral pulses 2+ throughout GI normal to inspection, nondistended, normoactive bowel sounds, soft to palpation, non-tender and non-distended Back/Spine normal ROM Extremity normal to inspection and full ROM Extremity Narrative: Mild nonpitting lower extremity edema, stable. Skin no rashes or lesions noted Neuro no focal motor deficits and no sensory deficits noted Speech: speech normal Psych mental status grossly normal Weight / BMI Weight Weight: 74.3 kg Body Mass Index (BMI) 28.0 ABG / Lab / Microbiology Data 10/10/23 05:20 10/12/23 06:15 Laboratory: Laboratory Results - last 24 hr 10/12/23 06:15: Sodium 140, Potassium 3.9, Chloride 104, Carbon Dioxide 32.0, Anion Gap 4 L, BUN 31 H, Creatinine 1.07 H, Estim Creat Clear Calc 37.95, Est GFR (MDRD) Af Amer 63, Est GFR (MDRD) Non-Af 52 L, BUN/Creatinine Ratio 29.0 H, Glucose 87, Calcium 8.8, B-Natriuretic Peptide 536.7 H Microbiology: Microbiology 10/09/23 23:40 Urine, Clean Catch Urine Culture - Final Culture exhibits no growth. 10/09/23 22:20 Mucosa - Nose SARS-CoV-2, Influenza & RSV (PCR) - Final ABG: ABG 10/11/23 16:59 Specimen Type ART Sample Site R Radial pH 7.44 Bicarbonate Actual 28.2 H Total CO2 30 Base Excess 4 H O2 Saturation 97 O2 % 2.0 ABG pCO2 41.5 ABG pO2 85 O2 Delivery Device Cannula Vent Mode Not entered D/C Instructions Discharge Diet: No restrictions Weight Bearing Status: Full weight bearing Meaningful Use Info Meaningful Use Meaningful Use Diagnoses (Choose all that apply): CHF CHF CAROLIN/ARB ordered at discharge?: No Reason CAROLIN/ARB not ordered?: Hypotension Documented LVEF (%): 55 Ischemic Stroke Statin Dosing Therapy Reference: STATIN DOSE THERAPY REFERENCE: * Patients > 75 years receive moderate or high dose statin therapy. * Patients 75 years or YOUNGER should receive HIGH intensity statin dose unless contraindicated. You will be required to document reason for non-treatment if statin daily dose does not meet guidelines. HIGH DOSE STATIN THERAPY DAILY Atorvastatin > than or = to 40 mg Rosuvastatin > than or = to 20 mg Amlodipine + Atorvastatin > than or = to 2.5/40 mg Ezetimibe + Simvastatin 10/80 mg Simvastatin 80mg Discharge Plan Admission Admit Date/Time: 10/10/23 03:27 Primary Reason for Your Visit: Worsening shortness of breath Attending Provider: John Mendenhall Primary Care Provider: Kaden Adams Consulting Providers: Frank Baez Instructions Patient Instructions: ED Heart Failure, Congestive (CHF), ED Pleural Effusion Additional Instructions / Restrictions: Please take the low-dose Coreg, Lasix and spironolactone for your heart failure and high blood pressure for now. Follow-up with a circular gang saw operator in the office in the next few weeks for further medication titration. Please stop taking warfarin 5 days prior to your biopsy (stop taking on 10/19); follow up with your PCP and you can have an INR level drawn 1-2 days before the biopsy to see what the level is and possibly make further adjustments with the warfarin as needed. Discharge Orders/Prescriptions Prescriptions: New ondansetron 4 mg tablet,disintegrating 4 mg PO TID PRN (Reason: nausea and vomiting) Qty: 21 0RF furosemide [Lasix] 20 mg tablet 20 mg PO DAILY 30 Days Qty: 30 0RF spironolactone 25 mg tablet 12.5 mg PO DAILY 30 Days Qty: 15 0RF carvedilol [Coreg] 3.125 mg tablet 3.125 mg PO BID 30 Days Qty: 60 0RF Rx Instructions: must administer with a meal/food Continued atorvastatin 40 MG tablet 40 mg PO QHS Qty: 30 0RF warfarin 2 mg tablet 2 mg PO .COMPLEX Rx Instructions: 2 mg orally Sun, , Tue, Thus, Sat; warfarin 2 mg tablet 4 mg PO .COMPLEX Rx Instructions: 4 mg orally Mon, Fri; Discontinued carvedilol [Coreg] 6.25 MG tablet 6.25 mg PO BID hydrochlorothiazide 50 MG tablet 25 mg PO DAILY Referrals / Follow Up: Kaden Adams DO [Primary Care Provider] - Adam Torerz MD [Med Staff - Active Staff] - 10/24/23 9:00 am Disposition Disposition (needs filled in before D/C Order can be placed): Home, Self Care Charges/Coding Visit Charges Inpatient E&M: 80258 Disch Hosp >30min
--- NOTE | 2023-10-12 13:21 | PHA.DC.MC.R ---
Pharmacy [facility] has performed discharge medication reconciliation and counseling for this patient. 1. FUROSEMIDE 20MG PO DAILY 2. ONDANSETRON 4MG PO TID PRN NAUSEA/VOMITING 3. SPIRONOLACTONE 12.5MG PO DAILY The patient's discharge medication list was reviewed for discrepancies and discrepancies were resolved. The patient was counseled on the following discharge medications and changes in medications for homegoing were reviewed. The Reason for Use, instructions for use, and potential side effects were reviewed for all new medications. The patient's questions regarding all of their medications were answered. The patient was able to verbally demonstrate an understanding of their discharge medications. Medications at Discharge Home Medications atorvastatin 40 mg tablet 40 mg PO QHS #30 tabs 06/20/17 warfarin 2 mg tablet 2 mg PO .COMPLEX 10/09/23 warfarin 2 mg tablet 4 mg PO .COMPLEX 10/09/23 ondansetron 4 mg disintegrating tablet 4 mg PO TID PRN nausea and vomiting #21 tabs 10/10/23 carvedilol 3.125 mg tablet (Coreg) 3.125 mg PO BID 30 days #60 tabs 10/12/23 furosemide 20 mg tablet (Lasix) 20 mg PO DAILY 30 days #30 tabs 10/12/23 spironolactone 25 mg tablet 12.5 mg (1/2 x 25 mg) PO DAILY 30 days #15 tabs 10/12/23
--- NOTE | 2023-10-12 14:29 | CASEMGMT ---
Patient has order for discharge. CARLITOS MICHEL in to discuss needs at discharge. Patient qualifies for home oxygen with ambulation. Patient has no preferences for DME, providers reviewed and would like [employer]. CARLITOS MICHEL inquired if interested in home therapy, patient declining HHC at this time. CARLITOS MICHEL requested PT provide exercise handouts to patient. RN CM updated patient and family that should they reconside home health to follow up with PCP. Patient and family voiced understanding. Patient and family had no further questions or concerns. CARLITOS MICHEL received script for home oxygen and sent referral to [employer] via [facility]. CARLITOS MICHEL updated discharge plan.
[2023-10-12 14:51] VITALS: BP 110/46; PULSE 54; RESP 14; TEMP 36.8; O2SAT 95
== END 2023-10-12 14:55 | disposition home or self-care (01) | DRG 291 ==
LOC: ED 10-10 02:09 → PCU 10-10 05:26
PROVIDERS: Admitting Provider Internal Medicine; Emergency Provider Emergency Medicine; PCP Family Medicine; Visit Provider Hospitalist
DX: I11.0 Hypertensive heart disease with heart failure (principal); I50.23 Acute on chronic systolic (congestive) heart failure; I48.20 Chronic atrial fibrillation, unspecified; I27.20 Pulmonary hypertension, unspecified; Z79.01 Long term (current) use of anticoagulants; E04.1 Nontoxic single thyroid nodule; D64.9 Anemia, unspecified; E87.6 Hypokalemia; E78.5 Hyperlipidemia, unspecified; M19.90 Unspecified osteoarthritis, unspecified site; A08.4 Viral intestinal infection, unspecified; E66.3 Overweight; R09.02 Hypoxemia; Z68.28 Body mass index [BMI] 28.0-28.9, adult; Z86.73 Personal history of transient ischemic attack (TIA), and cerebral infarction without residual deficits; Z79.899 Other long term (current) drug therapy; R06.89 Other abnormalities of breathing; R91.8 Other nonspecific abnormal finding of lung field
CPT/HCPCS: 36415; 36600; 71045; 71260; 74177; 76536; 80048; 80053; 80061; 80076; 81001; 82803; 83735; 83880; 84100; 84443; 85025; 85610; 85730; 87086; 87631; 93005; 93306; 94668; 97162; 97530; 99285; J7120; Q9967; A4216; J1940; J2405

== ENCOUNTER → 2023-10-24 | Outpatient (CLI) | payer OTHER, SELFPAY ==
--- NOTE | 2023-10-24 | FLU_PTH ---
PATIENT: MARYAN RAE LOC: [facility] U#:[id number] AGE/SX: 83/F ROOM: RE10/24/[address]: Dr. Adam Torrez MD : [id number] BED: DIS: 10/24/2023 SPEC #: [id number] RECD: 10/24/23 12:49 STATUS: [facility] [address] #: [id number] HUNG: 10/24/23 00:[address]: Adam Torrez DEPT: CYTOLOGY RECD BY: Jett Tellez ENTERED: 10/24/23 12:49 SP TYPE: Fluid OTHR DR: Dr. Kaden Adams DO Tissues: A - Thyroid gland, NOS B - Thyroid gland, NOS Procedures: Special Stain Group II Surgery Specimen Level IV Cytospin Fluid HEADER OPERATION: Fine needle aspiration of left thyroid nodule PRE-OP DIAGNOSIS: Left thyroid nodule TISSUE SUBMITTED: A- Left thyroid nodule fluid, B- Left thyroid nodule (smears) DIAGNOSIS CYTOLOGY A. Fine needle aspiration, left thyroid nodule (cytospin and cellblock): Consistent with benign follicular nodule (Opal Category II) . See comment. B. Fine needle aspiration, left thyroid nodule (smears): Consistent with benign follicular nodule (Opal Category II) . See comment. AM/ 10/25/23 COMMENT A&B. The Opal System for thyroid diagnostic categorization was used in the evaluation of this case. CYTOLOGY STUDY Slides are reviewed. CYTOLOGY GROSS A. Received is 50 ml of red cloudy fluid labeled with the patient's name and and designated per the requisition as Left thyroid nodule fluid. Submitted for cytology preparation including cell block. B. Received are 4 smears labeled with the patient's name and designated per the requisition as Left thyroid nodule. Submitted for staining. Mr 10/24/2023 TC:5 CPT: [id number]
== END | disposition home or self-care (01) ==
LOC: LABSPEC 11:23
PROVIDERS: PCP Family Medicine; Referring Provider Surgery; Visit Provider Surgery
DX: E04.1 Nontoxic single thyroid nodule (principal)
CPT/HCPCS: 88108; 88305; 88313

== ENCOUNTER → 2025-01-01 | Outpatient (CLI) | payer OTHER, SELFPAY ==
--- NOTE | 2025-01-01 11:02 | MRI_ITS ---
PROCEDURE: SPINE LUMBAR (ROUTINE) 01/01/2025 REASON FOR EXAM: UNSPECIFIED OSTEOARTHRITIS TECHNIQUE: SPINE LUMBAR (ROUTINE) COMPARISON: none FINDINGS: 1st degree anterolithesis of L4 over L5 and L5 over S1 with bilateral L4-L5 and L5-S1 facet arthropathy. No obvious vertebral fractures or structural collapse. Multilevel marginal lipping and subchondral degenerative marrow signal/Modio II of the thoraco-lumbar vertebral end plates. Multilevel reduced height and bright T2 signal of the intervertebral discs denoting their desiccation are noted. Multilevel ligamenta flava hypertrophy with multilevel degenerative facet arthropathy opposite L2-L3 down to L5-S1 adding to the central canal and neural foraminal stenosis. Level by level analysis: T12-L1: There is no focal disc pathology, central canal stenosis or neural foraminal stenosis. L1-L2: a 1 mm diffuse disc bulge indenting thecal sac and encroaching upon the related neural foramina inducing mild exiting nerve root compression. L2-L3: a 1 mm diffuse disc bulge indenting thecal sac and encroaching upon the related neural foramina inducing mild exiting nerve root compression. L3-L4: a 1 mm diffuse disc bulge indenting thecal sac and encroaching upon the related neural foramina inducing mild exiting nerve root compression. L4-L5: a diffuse disc pseudo-bulge indenting thecal sac and encroaching upon the related neural foramina inducing moderate exiting nerve root compression. L5-S1: a diffuse disc pseudo-bulge indenting thecal sac and encroaching upon the related neural foramina inducing moderate exiting nerve root compression. The lower thoracic spinal cord, conus medullaris, and cauda equina nerve roots are unremarkable. Bilateral acral ala insufficiency fractures with related patchy marrow edema. No marrow infiltrative lesions. Paravertebral soft tissue is unremarkable. No developmental canal stenosis. Orthostatic edema of the back. 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 Lumbar spondylosis with multilevel discs pathologies, facet arthropathy and hyp ertrophied ligamenta flava inducing variable degrees of spinal canal and neural exit pathways stenosis, as detailed. Bilateral acral ala insufficiency fractures with related patchy marrow edema. [facility]
== END | disposition home or self-care (01) ==
LOC: OPMRI 10:58
PROVIDERS: PCP Family Medicine; Referring Provider Emergency Medicine; Visit Provider Emergency Medicine
DX: M19.90 Unspecified osteoarthritis, unspecified site (principal)
CPT/HCPCS: 72148